=== PATIENT | female | born 1975 | race Caucasian/White ===

== ENCOUNTER → 2021-10-19 10:30 | Outpatient (BNVA) | payer OTHER, SELFPAY | PROVIDERS: PCP Internal Medicine; Visit Provider Psychiatry & Neurology Neurology | DX: G43.109 Migraine with aura, not intractable, without status migrainosus (principal); G36.0 Neuromyelitis optica [Devic] | CPT/HCPCS: 64615; 99212; J0585 ==

== ENCOUNTER → 2021-12-12 10:03 | Outpatient (BNVA) | payer OTHER, MEDICARE, SELFPAY | PROVIDERS: PCP Internal Medicine; Visit Provider Nurse Practitioner Family | DX: G44.009 Cluster headache syndrome, unspecified, not intractable (principal) | CPT/HCPCS: 99212 ==

== ENCOUNTER → 2022-03-16 09:16 | Outpatient (BNVA) | payer OTHER, SELFPAY | PROVIDERS: PCP Internal Medicine; Visit Provider Psychiatry & Neurology Neurology | DX: G43.109 Migraine with aura, not intractable, without status migrainosus (principal); G43.119 Migraine with aura, intractable, without status migrainosus; G36.0 Neuromyelitis optica [Devic] | CPT/HCPCS: 64615; 99211; J0585 ==

== ENCOUNTER → 2022-06-22 09:32 | Outpatient (BNVA) | payer OTHER, SELFPAY | PROVIDERS: PCP Internal Medicine; Visit Provider Psychiatry & Neurology Neurology | DX: G43.119 Migraine with aura, intractable, without status migrainosus (principal); G36.0 Neuromyelitis optica [Devic] | CPT/HCPCS: 64615; 99212; J0585 ==

== ENCOUNTER → 2022-08-06 10:57 | Outpatient (BNVA) | payer OTHER, SELFPAY | PROVIDERS: PCP Internal Medicine; Visit Provider Psychiatry & Neurology Neurology | DX: M25.511 Pain in right shoulder (principal); G36.0 Neuromyelitis optica [Devic]; M25.551 Pain in right hip | CPT/HCPCS: 99212 ==

== ENCOUNTER → 2022-08-20 14:46 | Outpatient (BNVA) | payer OTHER, SELFPAY | PROVIDERS: PCP Internal Medicine; Visit Provider Psychiatry & Neurology Neurology | DX: M25.511 Pain in right shoulder (principal); M25.551 Pain in right hip; G36.0 Neuromyelitis optica [Devic]; Z79.52 Long term (current) use of systemic steroids; Z79.899 Other long term (current) drug therapy | CPT/HCPCS: Q3014 ==

== ENCOUNTER 2022-09-04 10:00 | Outpatient (RCR) | payer OTHER, SELFPAY ==
--- NOTE | 2022-08-14 15:02 | MHC.PT.EP ---
[facility] [place] Office [place] Office [place] Office [address] Morgan Godinez [address] [phone] F: [phone] F: [phone] F: [phone] F: [phone] Physical Therapy Plan of Care Date of Evaluation: Date of Surgery: none Diagnosis: Pain in R shoulder. Assessment: Patient is a 46 year old R handed female who presents with s/s consistent with R shoulder pain. 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 Patient past medical history includes history of neuromyelitis optica. Current impairments include pain, posture, ROM, strength, activity tolerance and functional mobility. Functional limitations include decreased ability to lift, exercise, push, pull, carry, turn head, and sleep. Patient is motivated with good rehab potential. Skilled PT will address impairments and functional limitations in order to achieve goals. Frequency and Duration: The patient will be seen 2x/week for 5 weeks Short Term Goals: I with HEp - 2 weeks centralized s/s - 3 weeks Pain free full AAROM of shoulder - 3 weeks Correction Goals: Pain free sleep - 5 weeks SPADI 30 or less - 5 weeks max pain 2/10 with all ADLs. - 5 weeks I with self management of s/s - 5 weeks Treatment Plan: Modalities to reduce pain, spasms and effusion. Manual therapy to restore motion and function. Therapeutic exercise to improve strength and flexibility. Neuromuscular re-education for posture and balance. Therapeutic activities to return to functional activities of daily living. Electronically signed by: Adithya Hicks PT Please sign and return to therapist. Thank you for your referral.
--- NOTE | 2022-10-03 09:17 | MHC.PT.DC ---
[facility] [place] Office [place] Office [place] Office [address] Morgan Godinez [address] [phone] F: [phone] F: [phone] F: [phone] F: [phone] Physical Therapy Discharge Report Diagnosis: Pain in R shoulder. Date of Surgery: none Date of Evaluation: 08/14/22 Date of Discharge: 09/13/22 Treatments to Date: 5 Cancellations to Date: No Shows to Date: Discharge Status: Independent with HEP Recommend MD Follow-up Discharge Summary: 09/04/22: no sustained progress thus far and s/s are not improved. we will hold until MRI on the at this time. 08/28/22: we have been unable to make sustained progress thus far. we did try stretching of c-spine today and will assess response. If no progress by next appt we will likely refer back to MD with rec for further imaging and differential diagnosis. 08/24/22: pt still with significant pain and limitation. notes today cluster SENA present. we will monitor and progress as tolerated with aim on posture and symptom management. 08/15/22: improved tolerance today. seated position is better at this time. R TP to LS. start postural ex NV. Patient is a 46 year old R handed female who presents with s/s consistent with R shoulder pain. 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 Patient past medical history includes history of neuromyelitis optica. Current impairments include pain, posture, ROM, strength, activity tolerance and functional mobility. Functional limitations include decreased ability to lift, exercise, push, pull, carry, turn head, and sleep. Patient is motivated with good rehab potential. Skilled PT will address impairments and functional limitations in order to achieve goals. Electronically signed by: Adithya Hicks, PT Please sign and return to therapist. Thank you for your referral.
== END 2022-10-03 09:21 | disposition home or self-care (01) ==
LOC: HO.PTCHIC 10:00
PROVIDERS: PCP Internal Medicine; Visit Provider Psychiatry & Neurology Neurology
DX: M25.511 Pain in right shoulder (principal)
CPT/HCPCS: 97014; 97110; 97140; 97162

== ENCOUNTER 2022-09-12 09:46 | Outpatient (REF) | payer OTHER, SELFPAY ==
--- NOTE | ~2022-09-12 | MR_ITS ---
EXAMINATION: MR CERVICAL SPINE WITHOUT AND WITH CONTRAST CLINICAL INFORMATION: Neuromyelitis optica COMPARISON: None TECHNIQUE: MRI of the cervical spine was obtained using routine sequences without and with contrast. A total of 7 mL Gadavist was administered intravenously. FINDINGS: Mildly motion degraded examination. The craniocervical junction is intact. Straightening of the normal cervical lordosis. There is no significant spondylolisthesis. Vertebral body heights are normal without acute compression fracture. No suspicious enhancing osseous lesion. Multilevel disc desiccation with mild disc height loss at C6-C7. Level by level detail as follows: C2-C3: No spinal canal or neural foraminal stenosis. C3-C4: No spinal canal or neural foraminal stenosis. C4-C5: No spinal canal or neural foraminal stenosis. C5-C6: Mild bilateral facet hypertrophy. No spinal canal or neural foraminal stenosis. C6-C7: Annular disc bulge with superimposed right paracentral/subarticular disc protrusion/extrusion contributing to mild right eccentric spinal canal stenosis with flattening along the right ventral cord. Adjacent enhancement within the right ventral epidural spinal canal likely engorged epidural venous plexus. Mild uncovertebral spurring. Mild bilateral facet hypertrophy. Mild right without significant left neural foraminal stenosis. C7-T1: No spinal canal or neural foraminal stenosis. Though motion artifact limits assessment, there is short segment intramedullary T2 hyperintensity at the ventral cervicomedullary junction as well as within the ventral cord at the level of C2-C3, likely related to reported history of Neuromyelitis Optica. No abnormal intramedullary or leptomeningeal enhancement within limitations of motion artifact. No epidural fluid collection, mass, or hematoma. No significant abnormalities of the paraspinal musculature. The flow voids of the major cervical vessels are maintained, noting partially retropharyngeal course of the left proximal common carotid artery. The visualized intracranial structures are normal. No demonstrated abnormalities in the visualized neck. MR/MR cervical spine wo/w con IMPRESSION: Motion degraded examination. 1. Short segment intramedullary T2 hyperintensity at the ventral cervicomedullary junction as well as within the ventral cord at the level of C2-C3, likely related to reported history of Neuromyelitis Optica. 2. At C6-C7, a right paracentral/subarticular disc protrusion/extrusion results in mild right eccentric spinal canal stenosis mass effect along the right ventral cord and and mild right neural foraminal stenosis.
== END 2022-09-12 09:47 | disposition home or self-care (01) ==
LOC: HO.MRI 09:46
PROVIDERS: PCP Internal Medicine; Visit Provider Psychiatry & Neurology Neurology
DX: M25.511 Pain in right shoulder (principal); M54.2 Cervicalgia; G36.0 Neuromyelitis optica [Devic]
CPT/HCPCS: 72156; A9585

== ENCOUNTER → 2022-10-01 07:42 | Outpatient (BNVA) | payer OTHER, SELFPAY | PROVIDERS: Visit Provider Psychiatry & Neurology Neurology | DX: G36.0 Neuromyelitis optica [Devic] (principal); M50.223 Other cervical disc displacement at C6-C7 level | CPT/HCPCS: 99212 ==

== ENCOUNTER → 2022-11-01 14:57 | Outpatient (BNVA) | payer OTHER, SELFPAY | PROVIDERS: PCP Internal Medicine; Visit Provider Psychiatry & Neurology Neurology | DX: G36.0 Neuromyelitis optica [Devic] (principal); M50.223 Other cervical disc displacement at C6-C7 level ==

== ENCOUNTER → 2022-11-16 12:34 | Outpatient (BNVA) | payer OTHER, SELFPAY | PROVIDERS: PCP Internal Medicine; Visit Provider Psychiatry & Neurology Neurology | DX: G36.0 Neuromyelitis optica [Devic] (principal); G43.709 Chronic migraine without aura, not intractable, without status migrainosus; Z79.52 Long term (current) use of systemic steroids | CPT/HCPCS: 64615; 99212; J0585 ==

== ENCOUNTER 2023-03-04 09:44 | Outpatient (AMB) | payer OTHER, SELFPAY ==
[2023-03-04 09:45] VITALS: BP 124/82; PULSE 78; O2SAT 98
--- NOTE | 2023-03-04 09:45 | A.OFFVIS_ITS ---
Intake Vital Signs 03/04/23 09:45 Height 5 ft 3 in BP 124/82 Blood Pressure Location Rt brachial Position Sitting Pulse 78 Pulse Source Pulse Oximeter Pulse Oximetry (%) 98 Oxygen Delivery Method Simple Mask Intake Visit Reasons: botox-lvm Intake Note: Patient presents for botox injection Allergies promethazine [From Phenergan] Allergy (Verified 03/04/23 09:47) unknown Medication List - Last Reconciled 03/04/23 by Sunshine Blackwell MD baclofen 20 mg (2 x 10 mg) PO TID bupropion HCl (Wellbutrin XL) 300 mg PO QAM clonazepam 0.5 mg PO BEDTIME eculizumab (Soliris) 1,200 mg (120 mL) IV Q2W gabapentin 900 mg (1.5 x 600 mg) PO TID lidocaine 5% 1 patch topical DAILY 30 days meningococcal B vaccine,4-comp 50-50-50-25 mcg/0.5 mL (Bexsero) 0.5ml IM 1st d ose , 2nd dose in 4 weeks 0.5ml IM intramuscularly; omeprazole 20 mg PO BID 90 days omeprazole magnesium (Prilosec OTC) 20 mg PO BID onabotulinumtoxinA (Botox) subcut every 3 months; prednisone 20 mg PO DAILY romiplostim (Nplate) subcut sumatriptan succinate (Imitrex) 6 mg subcut DAILY HPI HPI Comments History of Present Illness Details ? 47y/o female comes for treatment of migraines with botox. she has h/o neuromyelitis optica diagnosed in 2019 and has been on soliris since then . Her first myelitis attack was in 2012 and her second was in 2019.she has residual neck pain , parsthesias and mild weakness 1 month she reported new paresthesias in left ahnd MRI C spine showed C6-7 new shallow paracentral disc protrusion causing mild narrowing of central canal , moderate to severe right ormainals stenosis at C7 No change in intramedullary lesion ??? Most frequent reported adverse reactions following injection of botox for chronic migraine include neck pain (9%), headache(5%), eyelid ptosis(4%), migraine(4%), muscular weakness(4%), musculuskeletal stiffness(4%), bronchitis( 3%), injection site pain (3%), musculoskeletal pain(3%), myalgia(3%), facial paresis(2%), HTN(2%) and muscle spasms(2%) were discussed in detail. ??? Botulinum toxin typeA 200units Lot no [id number] expiration Aug 2025 was diluted with 4 cc of normal saline . ??? Muscles injected- ??? Frontalis 4 sites ??? Procerus 1 site ??? House Wrecker- 2 sites ??? Temporalis- 8 sites ??? Occipitalis- 6 sites ??? Cervical paraspinals- 4 sites ??? Trapezius- 6 sites- 10 units each ??? 5 units each in 31 site ??? Total use- 185units ??? 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 Physical Exam Vital Signs: Last Vital Signs Pulse 78 03/04/23 09:45 BP 124/82 03/04/23 09:45 Pulse Ox 98 03/04/23 09:45 Oxygen Delivery Method Simple Mask 03/04/23 09:45 Const General: cooperative, healthy appearing and comfortable Nutritional Appearance: average body habitus Orientation/consciousness: patient oriented x3 Neck Other: tightness and spasm of right scapula, right semispinalis, trapezius Neuro General: patient oriented x3 and moves all extremities Gait exam (Neuro): Normal gait present Motor exam (neuro): 5/5 motor strength present throughout Deep tendon reflexes (DTR's): Right triceps reflex intensity grade: 0, Left triceps reflex intensity grade: 0, Rt Biceps (C5, C6): 2+, Left biceps reflex intensity grade: 2+, Right brachioradialis reflex intensity grade: 2+, Left brachioradialis reflex intensity grade: 2+, Right patellar reflex intensity grade: 4+ and Left patellar reflex intensity grade: 4+ Office Procedures Botulinum toxin Injection 12591 - Migraine Procedure code (CPT) selection complete Office Meds onabotulinumtoxinA Performing Provider: Sunshine Blackwell MD Administered by: Sunshine Blackwell MD on 03/04/23 10:35 Dose Route Admin Location Lot Number Expiration Date NDC Top Lift Compressor 200 unit subcut 7423-3387-58 ALLERGAN/BOTOX Comments: see hpi Assessment & Plan Assessment & Plan (1) Neuromyelitis optica [devic]: Code(s): G36.0 - Neuromyelitis optica [Devic] (2) Chronic migraine without aura: Code(s): G43.709 - Chronic migraine without aura, not intractable, without status migrainosus Qualifiers: Status migrainosus presence: without status migrainosus Intractability: intractable Qualified Code(s): G43.719 - Chronic migraine without aura, intractable, without status migrainosus Plan Patient tolerated the procedure well She will call with any side effects. Continue soliris 1200mgq 2weeks infusion Reviewed MRi results Info on Meningococcal booster given- due for Meningocccal A in 2023 and over due for meningococcal B vaccine Orders: Orders AMB Botulinum toxin Injection Today G43.709 - Chronic migraine without aura, not intractable, without status migrainosus Coding Level of Care Code Est Pt Level 1 (99909) Diagnoses Neuromyelitis optica [devic] G36.0 Chronic migraine without aura G43.719 Status migrainosus presence: without status migrainosus Intractability: intractable CPT Codes Botox Injection - Botox 3: 57672 - Migraine ([id number])
== END 2023-03-04 10:06 | disposition home or self-care (01) ==
PROVIDERS: Visit Provider Psychiatry & Neurology Neurology
DX: G36.0 Neuromyelitis optica [Devic] (principal); G43.719 Chronic migraine without aura, intractable, without status migrainosus
CPT/HCPCS: 64615

== ENCOUNTER → 2023-03-04 09:44 | Outpatient (BNVA) | payer OTHER, SELFPAY | PROVIDERS: Visit Provider Psychiatry & Neurology Neurology | DX: G43.709 Chronic migraine without aura, not intractable, without status migrainosus (principal); G36.0 Neuromyelitis optica [Devic]; Z79.52 Long term (current) use of systemic steroids; Z79.899 Other long term (current) drug therapy | CPT/HCPCS: 64615; 99211; J0585 ==

== ENCOUNTER 2023-06-06 08:37 | Outpatient (AMB) | payer OTHER, SELFPAY ==
--- NOTE | 2023-06-06 08:47 | A.OFFVIS_ITS ---
Intake Vital Signs 06/06/23 08:49 Height 5 ft 3 in Weight 159 lb 8 oz BMI 28.3 BP 98/68 Blood Pressure Location Rt brachial Position Sitting Respiration 15 Pulse 78 Pulse Source Pulse Oximeter Pulse Oximetry (%) 98 Oxygen Delivery Method Room Air Intake Visit Reasons: botox - confirmed Intake Note: Pt presents to the office for Botox injections. 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 Repairer Required: No Allergies promethazine [From Phenergan] Allergy (Verified 06/06/23 08:48) unknown Medication List - Last Reconciled 06/06/23 by Sunshine Blackwell MD baclofen 20 mg (2 x 10 mg) PO TID bupropion HCl (Wellbutrin XL) 300 mg PO QAM clonazepam 0.5 mg PO BEDTIME eculizumab (Soliris) 1,200 mg (120 mL) IV Q2W gabapentin 900 mg (1.5 x 600 mg) PO TID lidocaine 5% 1 patch topical DAILY 30 days meningococcal B vaccine,4-comp 50-50-50-25 mcg/0.5 mL (Bexsero) 0.5ml IM 1st dose , 2nd dose in 4 weeks 0.5ml IM intramuscularly; omeprazole 20 mg PO BID 90 days omeprazole magnesium (Prilosec OTC) 20 mg PO BID onabotulinumtoxinA (Botox) subcut every 3 months; prednisone 20 mg PO DAILY romiplostim (Nplate) subcut sumatriptan succinate (Imitrex) 6 mg subcut DAILY HPI HPI Comments History of Present Illness Details ? 47y/o female comes for treatment of migraines with botox. she has h/o neuromyelitis optica diagnosed in 2019 and has been on soliris since then . Her first myelitis attack was in 2012 and her second was in 2019.she has residual neck pain , paresthesias and mild weakness ??? Most frequent reported adverse reactions following injection of botox for chronic migraine include neck pain (9%), headache(5%), eyelid ptosis(4%), migraine(4%), muscular weakness(4%), musculuskeletal stiffness(4%), bronchitis(3%), injection site pain (3%), musculoskeletal pain(3%), myalgia(3%), facial paresis(2%), HTN(2%) and muscle spasms(2%) were discussed in detail. ??? Botulinum toxin typeA 200units Lot no [id number] expiration Aug 2025 was diluted with 4 cc of normal saline . ??? Muscles injected- ??? Frontalis 4 sites ??? Procerus 1 site ??? Crutch Maker- 2 sites ??? Temporalis- 8 sites ??? Occipitalis- 6 sites ??? Cervical paraspinals- 4 sites ??? Trapezius- 6 sites- 10 units each ??? 5 units each in 31 site ??? Total use- 185units ??? 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 Physical Exam Vital Signs: Last Vital Signs Pulse 78 06/06/23 08:49 Resp 15 06/06/23 08:49 BP 98/68 06/06/23 08:49 Pulse Ox 98 06/06/23 08:49 Oxygen Delivery Method Room Air 06/06/23 08:49 BMI result Body Mass Index 28.3 Const General: cooperative, healthy appearing and comfortable Nutritional Appearance: average body habitus Orientation/consciousness: patient oriented x3 Neck Other: tightness and spasm of right scapula, right semispinalis, trapezius Neuro General: patient oriented x3 and moves all extremities Gait exam (Neuro): Normal gait present Motor exam (neuro): 5/5 motor strength present throughout Office Procedures Botulinum toxin Injection 64996 - Migraine Procedure code (CPT) selection complete Office Meds onabotulinumtoxinA 200 unit solution for injection Performing Provider: Sunshine Blackwell MD Performing Location: [facility] Administered by: Sunshine Blackwell MD on 06/06/23 09:19 Dose Route Admin Location Dispensed Lot Number Expiration Date NDC Secondary Art Teacher 185 unit subcut 200 units [id number] 08/22/25 7450-5336-36 ALLERGAN/BOTOX Comments: see HPI Assessment & Plan Assessment & Plan (1) Neuromyelitis optica [devic]: Code(s): G36.0 - Neuromyelitis optica [Devic] (2) Chronic migraine without aura: Code(s): G43.709 - Chronic migraine without aura, not intractable, without status migrainosus Qualifiers: Status migrainosus presence: without status migrainosus Intractability: intractable Qualified Code(s): G43.719 - Chronic migraine without aura, intractable, without status migrainosus Plan Patient tolerated the procedure well She will call with any side effects. Continue soliris 1200mgq 2weeks infusion Reviewed MRi results Due for meningococcal A vaccine in 2023 Orders: Orders AMB Botulinum toxin Injection Today G43.709 - Chronic migraine without aura, not intractable, without status migrainosus Coding Level of Care Code Est Pt Level 1 (44538) Diagnoses Neuromyelitis optica [devic] G36.0 Intractable chronic migraine without aura and without status migrainosus G43.719 Status migrainosus presence: without status migrainosus Intractability: intractable CPT Codes Botox Injection - Botox 3: 46012 - Migraine ([id number])
[2023-06-06 08:49] VITALS: BP 98/68; PULSE 78; RESP 15; O2SAT 98; BMI 28.3
== END 2023-06-06 09:10 | disposition home or self-care (01) ==
PROVIDERS: PCP Internal Medicine; Visit Provider Psychiatry & Neurology Neurology
DX: G43.709 Chronic migraine without aura, not intractable, without status migrainosus (principal)
CPT/HCPCS: 64615

== ENCOUNTER → 2023-06-06 08:37 | Outpatient (BNVA) | payer OTHER, SELFPAY | PROVIDERS: PCP Internal Medicine; Visit Provider Psychiatry & Neurology Neurology | DX: G36.0 Neuromyelitis optica [Devic] (principal); G43.719 Chronic migraine without aura, intractable, without status migrainosus | CPT/HCPCS: 64615; 99211; J0585 ==

== ENCOUNTER 2023-09-20 15:39 | Outpatient (AMB) | payer OTHER, SELFPAY ==
--- NOTE | 2023-09-20 15:44 | A.OFFVIS_ITS ---
Intake Vital Signs 09/20/23 15:45 Height 5 ft 3 in Weight 160 lb BMI 28.3 BP 126/70 Blood Pressure Location Rt brachial Position Sitting Respiration 16 Pulse 80 Pulse Source Pulse Oximeter Pulse Oximetry (%) 99 Oxygen Delivery Method Room Air Intake Visit Reasons: botox-CONF Intake Note: Pt presents to office for Botox injections. Cementer Machine Required: No Allergies promethazine [From Phenergan] Allergy (Verified 09/20/23 15:44) unknown Medication List - Last Reconciled 09/20/23 by Sunshine Blackwell MD baclofen 20 mg (2 x 10 mg) PO TID bupropion HCl (Wellbutrin XL) 300 mg PO QAM eculizumab (Soliris) 1,200 mg (120 mL) IV Q2W gabapentin 900 mg (1.5 x 600 mg) PO TID meningococcal B vaccine,4-comp 50-50-50-25 mcg/0.5 mL (Bexsero) 0.5ml IM 1st dose , 2nd dose in 4 weeks 0.5ml IM intramuscularly; onabotulinumtoxinA (Botox) subcut every 3 months; romiplostim (Nplate) subcut sumatriptan succinate (Imitrex) 6 mg subcut DAILY HPI HPI Comments History of Present Illness Details ? 47y/o female comes for treatment of migraines with botox. she has h/o neuromyelitis optica diagnosed in 2019 and has been on soliris since then . Her first myelitis attack was in 2012 and her second was in 2019.she has residual neck pain , paresthesias and mild weakness ??? Most frequent reported adverse reactions following injection of botox for chronic migraine include neck pain (9%), headache(5%), eyelid ptosis(4%), migraine(4%), muscular weakness(4%), musculuskeletal stiffness(4%), bronchitis(3%), injection site pain (3%), musculoskeletal pain(3%), myalgia(3%), facial paresis(2%), HTN(2%) and muscle spasms(2%) were discussed in detail. ??? Botulinum toxin typeA 200units Lot no [id number] expiration December 2025 was diluted with 4 cc of normal saline . ??? Muscles injected- ??? Frontalis 4 sites ??? Procerus 1 site ??? Scrap Drop Crane Operator- 2 sites ??? Temporalis- 8 sites ??? Occipitalis- 6 sites ??? Cervical paraspinals- 4 sites ??? Trapezius- 6 sites- 10 units each ??? 5 units each in 31 site ??? Total use- 185units ??? 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 Physical Exam Vital Signs: Last Vital Signs Pulse 80 09/20/23 15:45 Resp 16 09/20/23 15:45 BP 126/70 09/20/23 15:45 Pulse Ox 99 09/20/23 15:45 Oxygen Delivery Method Room Air 09/20/23 15:45 BMI result Body Mass Index 28.3 Const General: cooperative, healthy appearing and comfortable Nutritional Appearance: average body habitus Orientation/consciousness: patient oriented x3 Neck Other: tightness and spasm of right scapula, right semispinalis, trapezius Neuro General: patient oriented x3 and moves all extremities Gait exam (Neuro): Normal gait present Motor exam (neuro): 5/5 motor strength present throughout Office Procedures Botulinum toxin Injection 06177 - Migraine Procedure code (CPT) selection complete Office Meds onabotulinumtoxinA 200 unit solution for injection Performing Provider: Sunshine Blackwell MD Performing Location: [facility] [place] [facility] Administered by: Sunshine Blackwell MD on 09/20/23 16:04 Dose Route Admin Location Dispensed Lot Number Expiration Date [facility] Utility Aide 185 unit subcut 200 units [id number] 12/20/25 8078-0396-72 ALLERGAN/BOTOX Comments: see hpi Assessment & Plan Assessment & Plan (1) Neuromyelitis optica [devic]: Code(s): G36.0 - Neuromyelitis optica [Devic] (2) Chronic migraine without aura: Code(s): G43.709 - Chronic migraine without aura, not intractable, without status migrainosus Qualifiers: Status migrainosus presence: without status migrainosus Intractability: intractable Qualified Code(s): G43.719 - Chronic migraine without aura, intractable, without status migrainosus Plan Patient tolerated the procedure well She will call with any side effects. Continue soliris 1200mgq 2weeks infusion Reviewed MRi results Due for meningococcal A vaccine in 2023 Orders: Orders AMB Botulinum toxin Injection Today G43.709 - Chronic migraine without aura, not intractable, without status migrainosus Coding Level of Care Code Tele Est Pt Level 1 (14469) Diagnoses Neuromyelitis optica [devic] G36.0 Intractable chronic migraine without aura and without status migrainosus G43.719 Status migrainosus presence: without status migrainosus Intractability: intractable CPT Codes Botox Injection - Botox 3: 03366 - Migraine ([id number])
[2023-09-20 15:45] VITALS: BP 126/70; PULSE 80; RESP 16; O2SAT 99; BMI 28.3
== END 2023-09-20 16:07 | disposition home or self-care (01) ==
PROVIDERS: PCP Internal Medicine; Visit Provider Psychiatry & Neurology Neurology
DX: G43.719 Chronic migraine without aura, intractable, without status migrainosus (principal)
CPT/HCPCS: 64615; 99211

== ENCOUNTER → 2023-09-20 15:39 | Outpatient (BNVA) | payer OTHER, SELFPAY | PROVIDERS: PCP Internal Medicine; Visit Provider Psychiatry & Neurology Neurology | DX: G36.0 Neuromyelitis optica [Devic] (principal); G43.719 Chronic migraine without aura, intractable, without status migrainosus | CPT/HCPCS: 64615; J0585 ==

== ENCOUNTER 2023-12-26 08:21 | Outpatient (AMB) | payer OTHER, SELFPAY ==
--- NOTE | 2023-12-26 08:21 | A.OFFVIS_ITS ---
Intake Visit Reasons: Follow Up Intake Note: Pt presents for 3 month follow up for chronic migraines via telehealth. She reports she has been awful with nearly daily migraines. Pillowcase Turner Required: No Allergies promethazine [From Phenergan] Allergy (Verified 12/26/23 08:21) unknown HPI Comments Details: 47y/o female calls for f/u of his migraines and cluster headaches.she has been having daily cluster like headaches for past 1 month . I treated her with a prednisone taper which she responded but has recurrence when she stopped.she has been taking daily sumatriptan During her soliris infusion 2 weeks ago she was given toradol IV 15 mg which helped for few hrs.. she has h/o neuromyelitis optica diagnosed in 2019 and has been on soliris since then . 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 Physical Exam Const General: in distress and anxious Orientation/consciousness: patient oriented x3 Neuro General: patient oriented x3 Telehealth Telehealth Telehealth Platform: Telephone Location of provider rendering services: practice address Location of patient: address on file Patient Identification confirmed using: Name, : Yes Telehealth method: voice only Patient verbally consented to treatment: Yes Patient verbally consented to billing insurance company: Yes Patient informed of any privacy concerns related to visit: Yes Minutes spent on Phone/Video with Pt.: 18 Assessment & Plan Assessment & Plan (1) Neuromyelitis optica [devic]: Code(s): G36.0 - Neuromyelitis optica [Devic] Category: Medical (2) Chronic migraine without aura: Code(s): G43.709 - Chronic migraine without aura, not intractable, without status migrainosus Category: Medical Qualifiers: Status migrainosus presence: without status migrainosus Intractability: intractable Qualified Code(s): G43.719 - Chronic migraine without aura, intractable, without status migrainosus Plan I will start her on another course of prednisone taper she is due for her BOTOX . Toradol 15mg during soliris infusion Continue soliris 1200mgq 2weeks infusion Reviewed MRi results Due for meningococcal A vaccine in 2023 Medications: Refilled prednisone 6 tabs qd 3 days 5 tabs qd 3days 4 tabs qd 3 days 3 tabs qd 3 days 2 tabs qd 3 days 1 tab qd for 3 days orally as directed; see taper instructions 65 tabs 0RF Coding Level of Care Code Tele Est Pt Level 4 (93725) Diagnoses Neuromyelitis optica [devic] G36.0 Intractable chronic migraine without aura and without status migrainosus G43.719 Status migrainosus presence: without status migrainosus Intractability: intractable
== END 2023-12-26 10:08 | disposition home or self-care (01) ==
LOC: HO.HSMS 08:21
PROVIDERS: PCP Internal Medicine; Visit Provider Psychiatry & Neurology Neurology
DX: G36.0 Neuromyelitis optica [Devic] (principal); G43.719 Chronic migraine without aura, intractable, without status migrainosus
CPT/HCPCS: 99442

== ENCOUNTER → 2023-12-26 08:21 | Outpatient (BNVA) | payer OTHER, SELFPAY | PROVIDERS: PCP Internal Medicine; Visit Provider Psychiatry & Neurology Neurology ==

== ENCOUNTER 2023-12-30 13:44 | Outpatient (AMB) | payer OTHER, SELFPAY ==
--- NOTE | 2023-12-30 13:50 | MHC.OFFVIS ---
Vital Signs 12/30/23 13:51 Height 5 ft 3 in Weight 160 lb BMI 28.3 BP 110/72 Blood Pressure Location Rt brachial Position Sitting Respiration 16 Pulse 68 Pulse Source Pulse Oximeter Pulse Oximetry (%) 99 Intake Visit Reasons: Botox - Confirmed Intake Note: Pt presents for Botox injections. Bond Manager Required: No Allergies promethazine [From Phenergan] Allergy (Verified 12/30/23 13:51) unknown Medication List - Last Reconciled 12/30/23 by Sunshine Blackwell MD baclofen 20 mg (2 x 10 mg) PO TID bupropion HCl XL (Wellbutrin XL) 300 mg PO QAM eculizumab (Soliris) 1,200 mg (120 mL) IV Q2W gabapentin 600 mg PO TID 30 days meningococcal B vaccine,4-comp 50-50-50-25 mcg/0.5 mL (Bexsero) 0.5ml IM 1st dose , 2nd dose in 4 weeks 0.5ml IM intramuscularly; onabotulinumtoxinA (Botox) subcut every 3 months; prednisone 6 tabs qd 3 days 5 tabs qd 3days 4 tabs qd 3 days 3 tabs qd 3 days 2 tabs qd 3 days 1 tab qd for 3 days orally as directed; see taper instructions romiplostim (Nplate) subcut sumatriptan succinate (Imitrex) 6 mg subcut DAILY verapamil ER 120 mg PO DAILY HPI Comments Details: ? 48y/o female comes for treatment of migraines with botox. she has h/o neuromyelitis optica diagnosed in 2019 and has been on soliris since then . Her first myelitis attack was in 2012 and her second was in 2019.she has residual neck pain , paresthesias and mild weakness ??? Most frequent reported adverse reactions following injection of botox for chronic migraine include neck pain (9%), headache(5%), eyelid ptosis(4%), migraine(4%), muscular weakness(4%), musculuskeletal stiffness(4%), bronchitis(3%), injection site pain (3%), musculoskeletal pain(3%), myalgia(3%), facial paresis(2%), HTN(2%) and muscle spasms(2%) were discussed in detail. ??? Botulinum toxin typeA 200units Lot no [id number] expiration December 2025 was diluted with 4 cc of normal saline . ??? Muscles injected- ??? Frontalis 4 sites ??? Procerus 1 site ??? Carpenter Assistant- 2 sites ??? Temporalis- 8 sites ??? Occipitalis- 6 sites ??? Cervical paraspinals- 4 sites ??? Trapezius- 6 sites- 10 units each ??? 5 units each in 31 site ??? Total use- 185units ??? 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 Physical Exam Vital Signs: Last Vital Signs Pulse 68 12/30/23 13:51 Resp 16 12/30/23 13:51 BP 110/72 12/30/23 13:51 Pulse Ox 99 12/30/23 13:51 BMI result Body Mass Index 28.3 Const General: cooperative, healthy appearing and comfortable Nutritional Appearance: average body habitus Orientation/consciousness: patient oriented x3 Neck Other: tightness and spasm of right scapula, right semispinalis, trapezius Neuro General: patient oriented x3 and moves all extremities Gait exam (Neuro): Normal gait present Motor exam (neuro): 5/5 motor strength present throughout Office Procedures Botulinum toxin Injection 13662 - Migraine Procedure code (CPT) selection complete Office Meds onabotulinumtoxinA 200 unit solution for injection Performing Provider: Sunshine Blackwell MD Performing Location: [facility] Administered by: Sunshine Blackwell MD on 12/30/23 14:16 Dose Route Admin Location Dispensed Lot Number Expiration Date NDC Red Lead Burner 200 unit subcut 200 units [id number] 12/20/25 8615-0583-66 ALLERGAN/BOTOX Comments: see HPI Assessment & Plan Assessment & Plan (1) Neuromyelitis optica [devic]: Code(s): G36.0 - Neuromyelitis optica [Devic] Category: Medical (2) Chronic migraine without aura: Code(s): G43.709 - Chronic migraine without aura, not intractable, without status migrainosus Category: Medical Qualifiers: Status migrainosus presence: without status migrainosus Intractability: intractable Qualified Code(s): G43.719 - Chronic migraine without aura, intractable, without status migrainosus Plan Patient tolerated the procedure well She will call with any side effects. Continue soliris 1200mgq 2weeks infusion Reviewed MRi results Due for meningococcal A vaccine in 2023 Orders: Orders AMB Botulinum toxin Injection Today G43.719 - Chronic migraine without aura, intractable, without status migrainosus Medications: New verapamil ER 120 mg PO DAILY 30 tabs 6RF onabotulinumtoxinA 200 units subcut ONCE 1 ea 0RF G43.719 - Chronic migraine without aura, intractable, without status migrainosus Coding Level of Care Code Est Pt Level 1 (97707) Diagnoses Neuromyelitis optica [devic] G36.0 Intractable chronic migraine without aura and without status migrainosus G43.719 Status migrainosus presence: without status migrainosus Intractability: intractable CPT Codes Botox Injection - Botox 3: 35201 - Migraine ([id number])
[2023-12-30 13:51] VITALS: BP 110/72; PULSE 68; RESP 16; O2SAT 99; BMI 28.3
== END 2023-12-30 14:12 | disposition home or self-care (01) ==
PROVIDERS: PCP Internal Medicine; Visit Provider Psychiatry & Neurology Neurology
DX: G43.719 Chronic migraine without aura, intractable, without status migrainosus (principal)
CPT/HCPCS: 64615

== ENCOUNTER → 2023-12-30 13:44 | Outpatient (BNVA) | payer OTHER, SELFPAY | PROVIDERS: PCP Internal Medicine; Visit Provider Psychiatry & Neurology Neurology | DX: G43.719 Chronic migraine without aura, intractable, without status migrainosus (principal); G36.0 Neuromyelitis optica [Devic] | CPT/HCPCS: 64615; 99211; J0585 ==

== ENCOUNTER 2024-04-15 11:29 | Outpatient (AMB) | payer OTHER, SELFPAY ==
--- NOTE | 2024-04-15 11:31 | MHC.OFFVIS ---
Vital Signs 04/15/24 11:32 Height 5 ft 3 in Weight 160 lb BMI 28.3 BP 106/68 Blood Pressure Location Rt brachial Position Sitting Respiration 16 Pulse 84 Pulse Source Palpation Intake Visit Reasons: Botox Intake Note: Pt presents to the office for Botox injections for Chronic migraines. Outpatient Surgery Rn Required: No Allergies promethazine [From Phenergan] Allergy (Verified 04/15/24 11:31) unknown Medication List - Last Reconciled 04/15/24 by Sunshine Blackwell MD baclofen 20 mg (2 x 10 mg) PO TID bupropion HCl XL (Wellbutrin XL) 300 mg PO QAM eculizumab (Soliris) 1,200 mg (120 mL) IV Q2W gabapentin 600 mg PO TID 30 days mening A conj vacc,2 of 2 (PF) 0.5 mL IM ONCE meningococcal B vaccine,4-comp 50-50-50-25 mcg/0.5 mL (Bexsero) 0.5ml IM 1st dose , 2nd dose in 4 weeks 0.5ml IM intramuscularly; onabotulinumtoxinA (Botox) subcut every 3 months; Oxygen Home Use High flow O2 at 12-15 lpm via non-rebreather mask, via M-tank when at home and E-tank when outside of home. Prn at onset of cluster headache attack. prednisone 6 tabs qd 3 days 5 tabs qd 3days 4 tabs qd 3 days 3 tabs qd 3 days 2 tabs qd 3 days 1 tab qd for 3 days orally as directed; see taper instructions romiplostim (Nplate) subcut sumatriptan succinate (Imitrex) 6 mg subcut DAILY verapamil ER 120 mg PO DAILY HPI Comments Details: ? 48y/o female comes for treatment of migraines with botox. she has h/o neuromyelitis optica diagnosed in 2019 and has been on soliris since then . Her first myelitis attack was in 2012 and her second was in 2019.she has residual neck pain , paresthesias and mild weakness How long do the migraines last=2-3 Intensity of migraine-10 ER visits related to [id number] Effectiveness of botox from last treatment(s) How many migraine days since receiving treatment:10 Change in intensity of migraine?decreased Change in frequency of migraine?decreased Change in use of acute medication for migraine?decreased Change in quality of life?improved ER visits related to migraine?none Explanation for any gaps in treatment Have at least three months elapsed since last treatment (Last botox date - frequency of injections)01/12 ??? Most frequent reported adverse reactions following injection of botox for chronic migraine include neck pain (9%), headache(5%), eyelid ptosis(4%), migraine(4%), muscular weakness(4%), musculuskeletal stiffness(4%), bronchitis(3%), injection site pain (3%), musculoskeletal pain(3%), myalgia(3%), facial paresis(2%), HTN(2%) and muscle spasms(2%) were discussed in detail. ??? Botulinum toxin typeA 200units Lot no [id number] expiration Jun 2026 was diluted with 4 cc of normal saline . ??? Muscles injected- ??? Frontalis 4 sites ??? Procerus 1 site ??? Producer Assistant- 2 sites ??? Temporalis- 8 sites ??? Occipitalis- 6 sites ??? Cervical paraspinals- 4 sites ??? Trapezius- 6 sites- 10 units each ??? 5 units each in 31 site ??? Total use- 185units ??? 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[employer] Physical Exam Vital Signs: Last Vital Signs Pulse 84 04/15/24 11:32 Resp 16 04/15/24 11:32 BP 106/68 04/15/24 11:32 BMI result Body Mass Index 28.3 Const General: cooperative, healthy appearing and comfortable Nutritional Appearance: average body habitus Orientation/consciousness: patient oriented x3 Neck Other: tightness and spasm of right scapula, right semispinalis, trapezius Neuro General: patient oriented x3 and moves all extremities Gait exam (Neuro): Normal gait present Motor exam (neuro): 5/5 motor strength present throughout Office Procedures Botulinum toxin Injection 20628 - Migraine Procedure code (CPT) selection complete Office Meds onabotulinumtoxinA 200 unit solution for injection Performing Provider: Sunshine Blackwell MD Performing Location[place] [facility] Administered by: Sunshine Blackwell MD on 04/15/24 12:03 Dose Route Admin Location Dispensed Lot Number Expiration Date [facility] Microfilm Mounter 185 unit IM 200 units [id number] 06/21/26 6506-9743-56 ALLERGAN/BOTOX Assessment & Plan Assessment & Plan (1) Neuromyelitis optica [devic]: Code(s): G36.0 - Neuromyelitis optica [Devic] Category: Medical (2) Chronic migraine without aura: Code(s): G43.709 - Chronic migraine without aura, not intractable, without status migrainosus Category: Medical Qualifiers: Status migrainosus presence: without status migrainosus Intractability: intractable Qualified Code(s): G43.719 - Chronic migraine without aura, intractable, without status migrainosus Plan Patient tolerated the procedure well She will call with any side effects. Continue soliris 1200mgq 2weeks infusion Reviewed MRi results Due for meningococcal A vaccine in 2023 Orders: Orders AMB Botulinum toxin Injection Today G43.119 - Migraine with aura, intractable, without status migrainosus, G43.719 - Chronic migraine without aura, intractable, without status migrainosus Medications: New onabotulinumtoxinA 200 units IM ONCE 1 ea 0RF migraine G43.119 - Migraine with aura, intractable, without status migrainosus, G43.719 - Chronic migraine without aura, intractable, without status migrainosus Coding Level of Care Code Est Pt Level 1 (01044) Diagnoses Neuromyelitis optica [devic] G36.0 Intractable chronic migraine without aura and without status migrainosus G43.719 Status migrainosus presence: without status migrainosus Intractability: intractable CPT Codes Botox Injection - Botox 3: 90582 - Migraine ([id number])
[2024-04-15 11:32] VITALS: BP 106/68; PULSE 84; RESP 16; BMI 28.3
== END 2024-04-15 11:50 | disposition home or self-care (01) ==
PROVIDERS: PCP Internal Medicine; Visit Provider Psychiatry & Neurology Neurology
DX: G43.719 Chronic migraine without aura, intractable, without status migrainosus (principal)
CPT/HCPCS: 64615

== ENCOUNTER → 2024-04-15 11:29 | Outpatient (BNVA) | payer OTHER, SELFPAY | PROVIDERS: PCP Internal Medicine; Visit Provider Psychiatry & Neurology Neurology | DX: G43.719 Chronic migraine without aura, intractable, without status migrainosus (principal); G36.0 Neuromyelitis optica [Devic] | CPT/HCPCS: 64615; 99211; J0585 ==

== ENCOUNTER 2024-07-20 15:05 | Outpatient (AMB) | payer OTHER, SELFPAY ==
--- OUTSIDE RECORDS SUMMARY | 2024-07-20 15:07 | XMS_ITS | Data Portability ---
Author Organization [employer], [facility] Address [address] [place] [id number] Care Team Providers Care Import/Export Agent Name Role Phone HIM [facility] OTHER Assessment Encounter Date Assessment Date Assessment LastModified by Organization Details LastModified Time 12/23/2023 12/23/2023 I provided real -time medical direction via phone for this encounter, and was available for additional phone based assistance as needed. I have reviewed and agree with the Assessment and Plan as documented by the Head Start Coordinator. The patient given the opportunity to ask questions. [email or web address] Not available 12/23/2023 15:47:21 Plan of Treatment Reminders Order Date Submit Date Provider Last Modified By Organization Details Last Modified Time Details Appointments None record ed. Lab None record ed. Referral None record ed. Procedures None record ed. Surgeries None record ed. Imaging None record ed. Medication Orders None record ed. Patient TargetsNo targets recorded. Patient InstructionsNo instructions recorded. Reason for Referral None Reported. Medical Equipment None Reported. Allergies Allergen ID Allergen Name Allergen Category Reaction Reaction Severity Criticality Documentation Date Start Date Code Code System Note Provider Name and Address Organization Details Recorded Time 5170 Phenergan medicatio n Not available Not available Not available 12/23/2023 67625 8 RxNorm Bela Michel MD [address] [place] [address],[address], [place], [address] [facility] [employer] 15:45:36 Medications Name Sig Start Date Stop Date Status Note LastModified by Organization Details LastModified Time prednisone 10 mg tablet PLEASE SEE ATTACHED FOR DETAILED DIRECTIONS active Not Available Not Available N ot Available gabapentin 600 mg tablet TAKE 1 TABLET BY MOUTH 3 TIMES A DAY active Not Available Not Available Not Available baclofen 10 mg tablet TAKE 2 TABLETS BY MOUTH THREE TIMES A DAY active Not Available Not Available Not Available omeprazole 20 mg capsule,terry yed release TAKE 1 CAPSULE BY MOUTH TWICE A DAY active Not Available Not Available No t Available sumatriptan 6 mg/0.5 mL subcutaneous pen injector INJECT 0.5 ML (1 PEN) SUBCUTANEOU SLY TWICE A DAY NEEDED active Not Available Not Available No t Available cyclobenzapr ine 5 mg tablet TAKE 1 TABLET BY MOUTH EVERY DAY FOR 10 DAYS active Not Available Not Available No t Available bupropion HCl XL 300 mg 24 hr tablet, extended release TAKE 1 TABLET BY MOUTH EVERY DAY active Not Available Not Available No t Available Vitals Date Recorded Heart rate Respiratory rate Oxygen saturation Oxygen saturation in Arterial blood by Pulse oximetry Body temperature Systolic blood pressure Diastolic blood pressure Provider Name and Address Organization Details Last Updated DateTime 4 85 /min 16 /min 100 % 100 % 97.8 [degF] 125 mm[Hg] 84 mm[Hg] Not Available [facility] - production 4 15:39:23 Social History None recorded. Functional Status None recorded. Mental Status None recorded. Family History Nothing Reported. Medical History No medical history recorded. Gynecological HistoryNo gynecological history recorded. Obstetrics History GPAL:G 0 P 0 0 0 0 Past Encounters Encounter ID Performer Location Encounter Start Date Encounter Closed Date Diagnosis/Indication Diagnosis SNOMED-CT Code Diagnosis ICD10 Code [id number] Bela Michel MD [facility] [address] [place] [id number] 12/23/2023 15:39:21 12/23/2023 16:36:29 Migraine [id number] G43.909 Health Concerns Section Related Observation LastModified by Organization Detai ls LastModified Time None Recorded Concern Status LastModified by Organization Details LastModified Time None Recorded Advance Directives Directive None Recorded Payers Encounter Date Sequence Insurance Name Policy Number Policy Burleson Covered Member ID Burleson Member ID Guarantor Name 12/23/2023 1 [facility] - DOS ON OR AFTER 2022 - DUAL ELIGIBLE - [employer] OPTIONS AND ONE CARE (MEDICARE REPLACEMENT/AD VANTAGE - HMO) Gary Patrick [id number] Gary Patrick Notes Date Note Type Note Provider Name and Address Organization Details Recorded Time 12/23/2023 text/html HPI: Member called [facility], c/o hx of cluster headaches. Member is currently being treated with sumatriptan inj. Member is being managed by Neurology. Per member, she is seeking refill of her sumatriptan, but the pharmacy states, it is too soon to refill. Member picked up 28 day supply on Saturday, 3 days ago, and has only one injection left. Per member report, she has been taking 5 injections/day. Prescription is for 2 injections per day as needed. Advised member, [facility] will not cover the early refill, if she is not taking medication as prescribed. She can follow up with her prescriber, regarding the frequency of taking the medication. Member states she has tried to contact her neurologist, but has not been successful. Member c/o severe headache. PMH includes but not limited to, SHAD, Neuromyelitis optica, intractable cluster headaches, MDD, transverse myelitis. Offered member [facility] visit. Informed member, [facility] does not prescribe medications. However, they can evaluate her, and if appropriate, the can give her Toradal injection. Advised her if sx's worsen or change, if she feels she is unable to wait for [facility], go to urgent care or ED. Member agreed with this plan ................... ................... ................... ................... ................... ................... ................... ........ [facility] Nurse Triage Notes (Nicki Fleming): Comments: [facility] RN DID NOT NEED FURTHER INFOSEGMD: As above/ + photophobia - no vomiting - no focal neuro c/o- took far too much sumatriptan in 3 days............... ................... ................... ................... ................... ................... ................... ............. Head Start Coordinator Note From Ashkan Adithya: Upon arrival to the pt? s home, pt was found seated in her living room speaking with her neurologist. Pt sts neurologist would prefer her to be transported to the ED for further evaluation. Pt reports hx of cluster SENA which usually respond well to her medications. Today the medications are not treating the SENA. Pt endorses photophobia but denies n/v/d. Pt is alert, visibly uncomfortable. VSS. Afebrile. Non focal neuro exam. Normal gait. Equal strength in all extremities. Pt requested ambulance transport. 911 initiated and SBAR to [facility] crew. ................... ................... ................... ................... ................... ................... ................... ........ Disposition: Fulfilled Bela Michel MD [address] [facility],[address], [place], [phone], [employer] 12/23/2023 16:17:58 OBGyn Episode No OBEpisode recorded.
--- OUTSIDE RECORDS SUMMARY | 2024-07-20 15:08 | XMS_ITS | Continuity of Care Document ---
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 Available Not Available Not Available Morphine Sulfate CR 15 mg tablet,ex tended release THREE TIMES DAILY active RECORDED 03/26/20 13 11:58AM BY EDWAR BORDEN MD, ANNOTATI ON/ADDEN DUM; Not Available Not Available Not Available tramadol 50 mg tablet TAKE 1 TABLET BY MOUTH TWICE A DAY NEEDED FOR PAIN MAX 7 DAYS SUPPLY FOR 1ST FILL* 11/30 completed Not Available Not Available Not Available zolmitrip cruz 5 mg tablet ONE TIME AT ONSET OF HEADACHE MAY REPEAT AFTER 2 H 01/21 completed RECORDED 01/24/20 13 12:36PM BY EDWAR BORDEN MD, MEDICATI ON AUTO-JOHAN CTIVATIO N; Not Available Not Available Not Available butalbita l-acetami nophen-ca ffeine 50 mg-325 mg-40 mg tablet Take 1 tablet as needed by oral route for 21 days. 11/13 completed Not Available Not Available Not Available lidocaine -prilocai ne 2.5 %-2.5 % topical cream USE UP TO 3 GM (1 PUMP =1.5GRAM S) TO PAIN SITE 3-4 TIMES DAILY. 06/30 completed Not Available Not Available Not Available lamotrigi ne 25 mg tablet Take 1 tablet every day by oral route for 42 days. 10/04 completed Not Available Not Available Not Available baclofen 20 mg tablet FOUR TIMES DAILY 10/04 completed Not Available Not Available Not Available oxycodone -acetamin ophen 5 mg-325 mg tablet TAKE 1 TABLET BY MOUTH EVERY 12 HOURS NEEDED FOR 5 DAYS 11/30 completed Not Available Not Available Not Available lidocaine 1 %-epineph rine 1:100,000 injection solution active Not Available Not Available Not Available sumatript an 6 mg/0.5 mL subcutane ous solution 2 TIMES PER DAY NEEDED FOR MIGRAINE 2014 active Not Available Not Available Not Avai lable amoxicill in 875 mg tablet TWO TIMES DAILY 12/09 completed RECORDED 01/13/20 11 2:27PM BY PATRICK SHEPPARD PA-C, MEDICATI ON AUTO-JOHAN CTIVATIO N; Not Available Not Available Not Available hydromorp aziza 2 mg tablet TAKE 1 TO 2 TABLETS BY MOUTH EVERY 4 TO 6 HOURS NEEDED FOR MODERATE PAIN SCALE 4-6 11/30 completed Not Available Not Available Not Available citalopra m 20 mg tablet Take 1 tablet every day by oral route. 02/02 completed Not Available Not Available Not Available omeprazol e 10 mg capsule,d elayed release Take 1 capsule by oral route for 30 days. 10/04 completed Not Available Not Available Not Available lorazepam 0.5 mg tablet TWO TIMES DAILY NEEDED 10/04 completed Not Available Not Available Not Available trazodone 100 mg tablet 06/25 completed Not Available Not Available Not Available diazepam 2 mg tablet Take 1 tablet every day by oral route for 5 days. 06/25 completed Not Available Not Available Not Available baclofen 10 mg tablet TAKE 2 TABLETS BY MOUTH 3 TIMES A DAY active Not Available Not Available No t Available benzonata te 100 mg capsule TAKE 1 CAPSULE BY MOUTH THREE TIMES A DAY NEEDED FOR COUGH FOR 10 DAYS NOT COVERED* * 08/21 completed Not Available Not Available Not Available lisinopri l 10 mg tablet Take 1 tablet every day by oral route for 90 days. 09/04 completed Not Available Not Available Not Available misoprost ol 200 mcg tablet 06/30 completed Not Available Not Available Not Available lidocaine 5 % topical patch APPLY 1 PATCH ONCE A DAY *MAX ON FOR 12 HOURS/24 HOURS* active Not Available Not Available No t Available oxycodone 5 mg capsule EVERY 4 HRS NEEDED FOR PAIN 12/21 completed RECORDED 12/23/19 13 7:26AM BY SHAWN PEÑA, MEDICATI ON AUTO-JOHAN CTIVATIO N; Not Available Not Available Not Available indometha ashli 50 mg capsule Take 1 capsule 3 times a day by oral route as directed for 7 days. 11/24 completed Not Available Not Available Not Available docusate sodium 100 mg capsule TAKE 1 CAPSULE BY MOUTH 2 TIMES A DAY NEEDED FOR CONSTIPA TION 02/25 completed Not Available Not Available Not Available gabapenti n 300 mg capsule 1 1 hour before bed 11/24 completed Not Available Not Available Not Available omeprazol e 20 mg capsule,d elayed release TAKE 1 CAPSULE BY MOUTH TWICE A DAY 05/14 completed Not Available Not Available Not Available monteluka st 10 mg tablet Take 1 tablet every day by oral route for 30 days. 08/21 completed Not Available Not Available Not Available mirtazapi ne 15 mg tablet 06/25 completed Not Available Not Available Not Available lorazepam 1 mg tablet TAKE 1 TABLET BY MOUTH EVERYDAY AT BEDTIME active Not Available Not Available No t Available azelastin e 137 mcg (0.1 %) nasal spray 08/21 completed Not Available Not Available Not Available scopolami ne 1 mg over 3 days transderm al patch EVERY 3 DAYS 12/02 completed RECORDED 12/05/19 13 10:26AM BY EDWAR BORDEN MD, MEDICATI ON AUTO-JOHAN CTIVATIO N; Not Available Not Available Not Available methylpre dnisolone 4 mg tablets in a dose pack TAKE 6 TABLETS ON DAY 1 DIRECTED ON PACKAGE AND DECREASE BY 1 TAB EACH DAY FOR A TOTAL OF 6 DAYS 11/24 completed Not Available Not Available Not Available sumatript an 20 mg/actuat ion nasal spray USE 1 SPRAY IN NOSTRIL DAILY NEEDED, MAY REPEAT AFTER 2 HRS IF NOT IMPROVED . MAX 2 SPRAYS PER DAY 06/25 completed Not Available Not Available Not Available oxybutyni n chloride 5 mg tablet Take 1 tablet twice a day by oral route for 30 days. 12/22 completed Not Available Not Available Not Available fluticaso ne propionat e 50 mcg/actua tion nasal spray,justina pension USE 2 SPRAYS IN EACH NOSTRIL DAILY, FOR EAR BLOCKAGE active Not Available Not Available No t Available Ambien 10 mg tablet Take 1 tablet every day by oral route. 2014 active Not Available Not Available Not Avai lable lamotrigi ne 100 mg tablet Take 1 tablet every day by oral route for 45 days. 11/13 completed Not Available Not Available Not Available simethico ne 80 mg chewable tablet CHEW 1 TABLET BY MOUTH 4 TIMES A DAY NEEDED FOR GAS 02/25 completed Not Available Not Available Not Available trimethob enzamide 300 mg capsule 3 TIMES PER DAY NEEDED FOR NAUSEA AND VOMITING 12/04 completed RECORDED 12/05/19 13 10:26AM BY EDWAR BORDEN MD, MEDICATI ON AUTO-JOHAN CTIVATIO N; Not Available Not Available Not Available sumatript an 6 mg/0.5 mL subcutane ous pen injector INJECT 0.5 ML (1 PEN) SUBCUTAN EOUSLY TWICE A DAY NEEDED active Not Available Not Available No t Available Cafergot 1 mg-100 mg tablet AT ONSET 05/17 completed RECORDED 05/17/20 10 12:35PM BY EDWAR BORDEN MD, ANNOTATI ON/ADDEN DUM;THEN MAY REPEAT 1 EVERY HALF HOUR X 4 (NO MORE THAN 6 TOTAL PER HEADACHE ) Not Available Not Available Not Available escitalop randee 10 mg tablet DAILY 04/15 completed RECORDED 04/15/20 13 8:33AM BY EDWAR BORDEN MD, SCOTTIE ON/ DUM; Not Available Not Available Not Available cyclobenz aprine 5 mg tablet TAKE 1 TABLET BY MOUTH EVERY DAY FOR 10 DAYS active Not Available Not Available No t Available bupropion HCl XL 300 mg 24 hr tablet, extended release TAKE 1 TABLET BY MOUTH EVERY DAY 2023 active Not Available Not Available Not Avai lable bupropion HCl XL 150 mg 24 hr tablet, extended release TAKE 1 TABLET BY MOUTH EVERY DAY active Not Available Not Available No t Available topiramat e 50 mg tablet TWO TIMES DAILY 11/06 completed RECORDED 11/07/19 14 8:47AM BY LEIA SUN MA, OFFICE VISIT; Not Available Not Available Not Available capsaicin 0.1 % topical cream Apply 1 applicat ion twice a day by topical route. 06/30 completed Not Available Not Available Not Available Menactra (PF) 4 mcg/0.5 mL intramusc ular solution 09/04 completed Not Available Not Available Not Available hydromorp aziza EVERY 4 HRS NEEDED FOR PAIN active RECORDED 03/26/20 13 11:58AM BY EDWAR BORDEN MD, SCOTTIE ON/ DUM; Not Available Not Available Not Available Vicodin THREE TIMES DAILY, NEEDED 01/29 completed RECORDED 01/31/20 11 2:22PM BY EDWAR BORDEN MD, MEDICATI ON AUTO-JOHAN CTIVATIO N; Not Available Not Available Not Available verapamil active for cluster headache s. Not Available Not Available Not Available cane DAILY 05/21 completed RECORDED 05/21/20 13 1:41PM BY SCOTTIE QUEZADA ON/ DUM;4-WV ONGED CANE Not Available Not Available Not Available Fioricet NEEDED active Not Available Not Available No t Available Imitrex STATdose Refill DIRECTED PRN MAX OF 2 DOSES DAILY 02/23 completed RECORDED 02/24/20 13 3:07PM BY EDWAR BORDEN MD, REFILL REQUEST; THIS ORDER DISCONTI NUED PER [facility]. Not Available Not Available Not Available Soliris 300 mg/30 mL intraveno us solution Infuse 240 mL every 2 weeks by intraven ous route. active For neuromye litis optica. Not Available Not Available Not Available oxycodone 10 mg tablet 09/04 completed Not Available Not Available Not Available Nplate prn platelet count 05/14 completed Not Available Not Available Not Available Botox 200 unit injection Take 200 units every 3 months by injectio n route for 90 days. active Not Available Not Available No t Available bupropion HCl XL 450 mg 24 hr tablet, extended release TAKE 1 TABLET BY MOUTH EVERY DAY active Not Available Not Available No t Available Fioricet 50 mg-300 mg-40 mg capsule Take 1 capsule every 4 hours by oral route as needed for 5 days. 06/18 completed Not Available Not Available Not Available butalbita l 50 mg-acetam inophen 300 mg-caffei ne 40 mg-codein e 30 mg cap TAKE ONE CAPSULE BY MOUTH EVERY 4 HOURS NEEDED 06/25 completed Not Available Not Available Not Available Trumenba 120 mcg/0.5 mL intramusc ular syringe 09/04 completed Not Available Not Available Not Available Fluzone Quad (PF) 60 mcg (15 mcg x 4)/0.5 mL IM syringe PHARMACY ADMINIST ERED 11/24 completed Not Available Not Available Not Available Vitals Date Recorded Body height Body mass index (BMI) Body weight Heart rate Oxygen saturation Oxygen saturation in Arterial blood by Pulse oximetry Body temperature Systolic blood pressure Diastolic blood pressure Provider Name and Address Organization Details Last Updated DateTime 4 160.02 cm 27.6 kg/m2 66339.4 1 g 106 /min 99 % 99 % 97.8 [degF] 111 mm[Hg] 78 mm[Hg] Liseth Marx MA [facility] 4 14:48:33 Social History Question Answer Notes LastModified by Organizat ion Details LastModified Time Tobacco Smoking Status Former Smoker Not Available [facility] 05/24/2020 03:36:38 Do You Have An Advance Directive? Yes Information not available 03/21/2022 What Is Your Level Of Alcohol Consumption? Occasional [id number] Information not available 05/24/2020 Is Blood Transfusion Acceptable In An Emergency? Yes [id number] Information not available 05/24/2020 What Is Your Level Of Caffeine Consumption? Occasional Coffee 1 Daily [id number] Information not available 05/24/2020 How Much Tobacco Do You Chew? None [email or web address] Information not available 02/02/2021 Are You Currently Employed? Yes [id number] Information not available 05/24/2020 What Type Of Diet Are You Following? REGULAR [id number] Information not available 05/24/2020 Which Illicit Or Recreational Drugs Have You Used? None [id number] Information not available 05/24/2020 Do You Or Have You Ever Used E-cigarettes Or Vape? Current User Of Electronic Cigarettes Ocassional Information not available 03/21/2022 What Is Your Occupation? [employer] IN[employer] [id number] Information not available 05/24/2020 When Did You Quit Smoking? 15+yearssince marietta andino Information not available 05/14/2023 Live Alone Or With Others? With Others Children 3 Sons Information not available 03/21/2022 Do You Take Precautions To Prevent Distracted Driving? Yes [email or web address] Information not available 06/15/2015 How Often Do You Need To Have Someone Help You When You Read Instructions, Pamphlets, Or Other Written Material From Your Doctor Or Pharmacy? Never TAPP Information not available 06/15/2015 Have You Served In The ? No TAPP Information not available 06/25/2016 Have You Or Anyone In Your Household Had Any Of The Following Symptoms In The Last 14 Days: Sore Throat, Cough, Chills, Body Aches For Unknown Reasons, Shortness Of Breath For Unknown Reasons, Loss Of Smell, Loss Of Taste, Fever At Or Greater Than 100 Degrees Fahrenheit? No Information not available 02/26/2020 Are You Or Anyone In Your Household A Health Care Provider Or Emergency Responder? No Information not available 02/26/2020 To The Best Of Your Knowledge Have You Been In Close Proximity To Any Individual Who Tested Positive For COVID-19? No Information not available 02/26/2020 Have You Recently Traveled To A COVID-19 High Risk Area Or Gathering In The Last 10 Days? No Information not available 02/02/2021 What Was The Date Of Your Most Recent Tobacco Screening? 05/19/2024 [email or web address] Information not available 05/19/2024 How Many Children Do You Have? 3 Sons Born 1998 2000 And 2006 [id number] Information not available 05/24/2020 Do You Use Your Seat Belt Or Car Seat Routinely? Yes Information not available 03/21/2022 Seat Belts Used Routinely Yes Information not available 03/21/2022 Are You Sexually Active? Yes Information not available 03/21/2022 Smoke Alarm In Home Yes Information not available 03/21/2022 Do You Have Smoke And Carbon Monoxide Detectors In Your Home? Yes Information not available 03/21/2022 At What Age Did You Start Smoking Tobacco? 17 [email or web address] Information not available 05/14/2023 Are You Passively Exposed To Smoke? Yes Information not available 03/21/2022 Do You Or Have You Ever Used Smokeless Tobacco? Never Used Smokeless Tobacco [id number] Information not available 05/24/2020 Do You Use Any Illicit Or Recreational Drugs? No Information not available 03/21/2022 Do You Use Sunscreen Routinely? Yes [id number] Information not available 05/24/2020 How Many Years Have You Smoked Tobacco? 5 Information not available 03/21/2022 Do You Or Have You Ever Used Any Other Forms Of Tobacco Or Nicotine? No Information not available 03/21/2022 Sex: Unknown Functional Status Question Answer Note LastModified by Organizat ion Details LastModified Time Are you able to walk? [email or web address] Information not available 03/21/2022 Are you able to care for yourself? Yes [id number] Information not available 05/24/2020 What is your exercise level? Occasional walking, weights [id number] Information not available 05/24/2020 Mental Status None recorded. Family History Relationship Description Onset Age of this Age Resolved Age Notes LastModified by Organization Details LastModified Time Mother Diabetes mellitus [email or web address] Not available 12/2015 16:11:37 Father Hypercholest erolemia [email or web address] Not available 12/2015 16:11:37 Unspecified Relation Migraine [email or web address] Not available 021 09:36:48 Unspecified Relation Sleep disorder Not available 2020 09:36:48 Brother Stabbed in fight 21 sina Not available 04/22 15:06:45 Notes:3 brothers (1 at age 21 --stabbed) Medical History Condition Response Anxiety Disorder Y Bladder Problems Y Depression Y Allergies Y Gynecological History Statement/Question Response Menses Monthly N Date of Last Pap Smear 03/02/2019 Most Recent Mammogram 06/06/2023 Obstetrics History GPAL:G 0 P 0 0 0 0 Immunizations Vaccine Type Date Status Note Provider Nam e and Address Organization Details Recorded Time Influenza, split virus, quadrivalent, preservative 9 completed Domitila Stover null, [facility] 11/29/2022 09:46:53 meningococcal B, recombinant 9 completed Domitila Stover null, [facility] 11/29/2022 09:46:53 meningococcal ACWY, unspecified formulation 9 completed Not Available [facility] 08/19/2023 10:53:02 Influenza, split virus, quadrivalent, preservative 1 completed Domitila Stover null, [facility] 11/29/2022 09:46:52 COVID-19, mRNA, LNP-S, PF, 100 mcg/0.5mL dose or 50 mcg/0.25mL dose 1 completed Domitila Stover null, [facility] 11/29/2022 09:46:53 COVID-19, mRNA, LNP-S, PF, 100 mcg/0.5mL dose or 50 mcg/0.25mL dose 1 completed Domitila Stover null, [facility] 11/29/2022 09:46:53 Influenza, split virus, quadrivalent, PF 0 completed Domitila Stover null, [facility] 11/29/2022 09:46:53 meningococcal MCV4P 9 completed Domitila Stover null, [facility] 11/29/2022 09:46:53 Influenza, split virus, quadrivalent, PF 6 completed Domitila Stover null, [facility] 11/29/2022 09:46:53 Meningococcal MCV4O 3 completed Leia Gomez MA null, [facility] 11/30/2022 16:10:01 Tdap 6 completed Not Available [facility] 08/08/2019 02:21:45 MMR 5 completed Domitila Stover null, [facility] 11/29/2022 09:46:53 varicella 5 completed Domitila Stover null, [facility] 11/29/2022 09:46:53 Hep B, adult 6 completed Domitila Stover null, [facility] 11/29/2022 09:46:53 Td (adult), 2 Lf tetanus toxoid, preservative free, adsorbed 6 completed Domitila Stover null, [facility] 11/29/2022 09:46:53 Hep B, adult 6 completed Domitila Stover null, [facility] 11/29/2022 09:46:53 Influenza, split virus, quadrivalent, PF 3 completed Edwar Horn MD [address] [address], [place], [address], [facility] 05/14/2023 17:00:25 Influenza, split virus, trivalent, PF 4 completed Edwar Horn MD [address] [address], [place], [address], [facility] 05/20/2024 08:34:42 Past Encounters Encounter ID Performer Location Encounter Start Date Encounter Closed Date Diagnosis/Indication Diagnosis SNOMED-CT Code Diagnosis ICD10 Code [id number] Edwar Horn MD Main Office [address] [address] 05/19/2024 14:31:55 05/19/2024 15:29:04 Adult health examination 337867111 Z00.00 Needs infl uenza immunization 176065542 Z23 Thrombocyt openic disorder 199589294 D69.6 Idiopathic transverse myelitis 689364431 G37.3 Anxiety 35329246 F41.9 Moderate m ajor depression 472077 F32.1 Health Concerns Section Related Observation LastModified by Organization Detai ls LastModified Time None Recorded Concern Status LastModified by Organization Details LastModified Time None Recorded Payers Encounter Date Sequence Insurance Name Policy Number Policy Burleson Covered Member ID Burleson Member ID Guarantor Name 05/19/[address] [facility] - DOS ON OR AFTER 2022 - DUAL ELIGIBLE - [employer] AND [employer] (MEDICARE REPLACEMENT/AD VANTAGE - HMO) Gary Patrick [id number] Gary Patrick Notes Date Note Type Note Provider Name and Address Organization Details Recorded Time 05/19/2024 text/html Generic HPI TemplateReported bypatient.Notes:She has multiple chronic problems including transverse myelitis, a thrombocytopenic d/o and neuromyelitis optica all of which have been stable recently. No change in mgmt.She continues to work as a [employer] and currently has 2 clients.She does not exercise regularly because she fatigues easily.She had the initial COVID vaccine series but is hesitant about getting boosters because of potential SE's.Due for a mammogram next month which she will schedule. Edwar Horn MD [address] [address], [place], [address], [facility] 05/20/2024 08:47:11 OBGyn Episode No OBEpisode recorded.
--- OUTSIDE RECORDS SUMMARY | 2024-07-20 15:08 | XMS_ITS | Data Portability ---
Author Organization [facility], Main Office Address [address] [facility] [address] [place] [id number] Care Team Providers Care Supervisor Post Wave Name Role Phone MONTY HORN Primary Care Provider RON HUIZAR Neurologist PHAM AMRSTRONG Medical Oncologist [facility] G[facility]OGY Gynecological/Oncology HEATHER LEE Neurosurgeon ROCCO COYNE Referring Provider Assessment Encounter Date Assessment Date Assessment LastModified by Organization Details LastModified Time 08/19/2023 08/19/2023 Discussed with patient the signs/symptoms warranted for a return to office visit and/or an ER visit. Patient understood and agreed with the plan. Not available 08/19/2023 11:12:25 12/30/2023 12/30/2023 Discussed with patient the signs/symptoms warranted for a return to office visit and/or an ER visit. Patient understood and agreed with the plan. Not available 12/30/2023 11:30:31 01/13/2024 01/13/2024 Chalazion with significant swelling of the upper lid on the left. Will continue conservative treatment and add abx with systemic doxy. follow up as needed. [email or web address] Not available 01/13/2024 14:39:40 Plan of Treatment Reminders Order Date Submit Date Provider Last Modified By Organization Details Last Modified Time Details Appointments FOLLOW UP 1 2024 12:45P M Monty james MD Not available Not available Not available Lab TSH, ultra-sen sitive, serum 2023 FRESNO [facility], [address], [place], [address], 02/27/2024 12:06:24 CBC w/ auto diff 2023 FRESNO [facility], [address], [address], [place], [address], 05/21/2024 06:07:33 CMP, serum or plasma 2023 FRESNO [facility], [address], [address], [place], [address], 05/21/2024 06:07:34 Referral physical therapist referral - left sided neck pain 2023 FRESNO [facility] [place] [address], [address], [place], [address], 10/16/2023 19:01:13 Procedures None recorded. Surgeries None recorded. Imaging XR, cervical spine - hx of surgery on C6/C7. left sided neck pain. note of any structura l changes. 2023 024 azeb [facility], [address] [place], [address], 08/19/2023 13:18:55 CT, cervical spine, w/o contrast - Neck pain for almost a year. Did PT for a month w/o help as well as home exercises . Has been taking tylenol and a muscle relaxant with minimal help. Cannot take NSAIDs because of low platelets . Had a cervical disc replaced by Dr Lee September 2022. R/o nerve compressi on. 2023 024 azeb [facility] [place] [facility] [address] [place], [address], 03/05/2024 08:23:44 Medication Orders cyclobenz aprine 5 mg tablet 2023 024 [facility]/Pharmacy #[id number], [address] [facility] [place], [address], 12/30/2023 14:33:20 doxycycli ne hyclate 100 mg capsule 2023 024 [facility]acy #[id number], [address] [facility], [address], 05/19/2024 14:49:32 cyclobenz aprine 10 mg tablet 2023 024 [facility]/Pharmacy #[id number], [address] [facility], [address], 02/26/2024 15:28:58 fluticaso ne propionat e 50 mcg/actua tion nasal spray,justina pension 2023 024 [email or web address] [facility]/Pharmacy #[id number], [address], [address], 03/19/2024 13:00:18 Patient TargetsNo targets recorded. Patient Instructions Encounter Date Encounter Id Patient Instructions Last Modified By Organization Details Last Modified Time 08/19/2023 [id number] chronic insomnia education Not available 08/19/2023 11:22:45 Chart reviewed, agree with above assessment and plan. [email or web address] Not available 08/21/2023 17:43:18 12/30/2023 [id number] At [facility] follow up visit, all current and discharge medications (OTC, herbal therapies, supplements) reviewed and reconciled with patient and or caregiver, including potential side effects, drug interactions, instructions, and the consequences of not taking medication. Reviewed potential barriers to medication adherence, such as side effects from medication or cost of medication. [email or web address] Not available 12/30/2023 14:26:53 02/26/2024 [id number] neck: exercises [email or web address] Not availab le 02/26/2024 15:28:54 healthy upper back: exercises [email or web address] Not available 02/26/2024 15:28:53 05/19/2024 [id number] thrombocytopenia : care instructions [email or web address] Not available 05/19/2024 15:22:54 Reason for Referral Physical Therapist Referral for Neck pain left sided neck pain Referring Physician: Jayde Bright, Family Medicine, Encounter Date: 08/19/2023 Results Created Date Observation Date Name Description Value Unit Range Abnormal Flag Note LastModifiedBy Organization Detail LastModifiedTime 02/26/2002/27/2024 TSH RFX ON ABNOR MAL TO FREE T4 TSH 0.583 uIU/m L 0.450- 4.500 normal Not Available [facility] ([facility]) [address] [place], [address], 02/27/2024 12:06:24 05/19/2005/20/2024 CBC WITH DIFFE RENTI AL/PL ATELE T WBC 5.2 x10e3 /uL 3.4-10 .8 normal Not Available [facility] ([facility]) [address] [place], [address], 05/21/2024 06:07:32 05/19/2005/20/2024 CBC WITH DIFFE RENTI AL/PL ATELE T RBC 4.90 x10e6 /uL 3.77-5 .28 normal Not Available [facility] ([facility]) [address] [place], [address], 05/21/2024 06:07:32 05/19/2005/20/2024 CBC WITH DIFFE RENTI AL/PL ATELE T hemoglobin 13.2 g/dL 11.1-1 5.9 normal Not Available [facility] ([facility]) [address] [place], [address], 05/21/2024 06:07:32 05/19/2005/20/2024 CBC WITH DIFFE RENTI AL/PL ATELE T hematocrit 41.6 % 34.0-4 6.6 normal Not Available [facility] ([facility]) [address] [place], [address], 05/21/2024 06:07:32 05/19/20 05/20/2024 CBC WITH DIFFE RENTI AL/PL ATELE T MCV 85 fL 79-97 normal Not Available [facility] ([facility]) [address] [facility], [place], [address], 05/21/2024 06:07:32 05/19/2005/20/2024 CBC WITH DIFFE RENTI AL/PL ATELE T MCH 26.9 pg 26.6-3 3.0 normal Not Available [facility] ([facility]) [address] [facility], [place], [address], 05/21/2024 06:07:32 05/19/2005/20/2024 CBC WITH DIFFE RENTI AL/PL ATELE T MCHC 31.7 g/dL 31.5-3 5.7 normal Not Available [facility] ([facility]) [address] [facility], [place], [address], 05/21/2024 06:07:32 05/19/2005/20/2024 CBC WITH DIFFE RENTI AL/PL ATELE T RDW 13.0 % 11.7-1 5.4 Not Available [facility] ([facility]) [address] [facility], [place], [address], 05/21/2024 06:07:32 05/19/2005/20/2024 CBC WITH DIFFE RENTI AL/PL ATELE T platelets 98 x10e3 /uL 150-45 0 alert low Not Available [facility] ([facility]) [address] [facility], [place], [address], 05/21/2024 06:07:32 05/19/2005/20/2024 CBC WITH DIFFE RENTI AL/PL ATELE T neutrophils 70 % not estab. normal Not Available [facility] ([facility]) [address] [facility], [place], [address], 05/21/2024 06:07:32 05/19/2005/20/2024 CBC WITH DIFFE RENTI AL/PL ATELE T lymphs 20 % not estab. normal Not Available [facility] ([facility]) [address] [facility], [place], [address], 05/21/2024 06:07:32 05/19/20 24 05/20/2024 CBC WITH DIFFE RENTI AL/PL ATELE T monocytes 8 % not estab. normal Not Available [facility] ([facility]) [address] [facility], [place], [address], 05/21/2024 06:07:32 05/19/2005/20/2024 CBC WITH DIFFE RENTI AL/PL ATELE T eos 0 % not estab. normal Not Available [facility] ([facility]) [address] [facility], [place], [address], 05/21/2024 06:07:32 05/19/2005/20/2024 CBC WITH DIFFE RENTI AL/PL ATELE T basos 1 % not estab. normal Not Available [facility] ([facility]) [address] [facility], [place], [address], 05/21/2024 06:07:32 05/19/20 24 05/20/2024 CBC WITH DIFFE RENTI AL/PL ATELE T immature cells BUN MACHINE OPERATOR Not Available [facility]) [address] [facility], [place], [address], 05/21/2024 06:07:32 05/19/20 24 05/20/2024 CBC WITH DIFFE RENTI AL/PL ATELE T neutrophils (absolute) 3.7 x10e3 /uL 1.4-7. 0 normal Not Available [facility] ([facility]) [address] [place], [address], 05/21/2024 06:07:32 05/19/20 24 05/20/2024 CBC WITH DIFFE RENTI AL/PL ATELE T lymphs (absolute) 1.0 x10e3 /uL 0.7-3. 1 normal Not Available [facility] ([facility]) [address] [facility], [place], [address], 05/21/2024 06:07:32 05/19/20 24 05/20/2024 CBC WITH DIFFE RENTI AL/PL ATELE T monocytes(ab solute) 0.4 x10e3 /uL 0.1-0. 9 normal Not Available [facility] ([facility]) [address] [facility], [place], [address], 05/21/2024 06:07:32 05/19/2005/20/2024 CBC WITH DIFFE RENTI AL/PL ATELE T eos (absolute) 0.0 x10e3 /uL 0.0-0. 4 normal Not Available [facility] ([facility]) [address] [facility], [place], [address], 05/21/2024 06:07:32 05/19/20 24 05/20/2024 CBC WITH DIFFE RENTI AL/PL ATELE T baso (absolute) 0.0 x10e3 /uL 0.0-0. 2 normal Not Available [facility] ([facility]) [address] [facility], [place], [address], 05/21/2024 06:07:32 05/19/20 24 05/20/2024 CBC WITH DIFFE RENTI AL/PL ATELE T immature granulocytes 1 % not estab. Not Available [facility] ([facility]) [address] [facility], [place], [address], 05/21/2024 06:07:32 05/19/2005/20/2024 CBC WITH DIFFE RENTI AL/PL ATELE T immature grans (abs) 0.0 x10e3 /uL 0.0-0. 1 Not Available [facility] ([facility]) [address] [facility], [place], [address], 05/21/2024 06:07:32 05/19/20 24 05/20/2024 CBC WITH DIFFE RENTI AL/PL ATELE T NRBC BUN MACHINE OPERATOR Not Available [facility] ([facility]) [address] [facility], [place], [address], 05/21/2024 06:07:32 05/19/20 24 05/20/2024 CBC WITH DIFFE RENTI AL/PL ATELE T hematology comments: Note: Verif ied by christina allen n. Not Available [facility] ([facility]) [address] [facility], [place], [address], 05/21/2024 06:07:32 05/19/2005/21/2024 COMP. METAB OLIC PANEL (14) glucose 111 mg/dL 70-99 above high normal Not Available [facility] ([facility]) [address] [facility], [place], [address], 05/21/2024 06:07:34 05/19/2005/21/2024 COMP. METAB OLIC PANEL (14) BUN 18 mg/dL 6-24 normal Not Available [facility] ([facility]) [address] [facility], [place], [address], 05/21/2024 06:07:34 05/19/20 24 05/21/2024 COMP. METAB OLIC PANEL (14) creatinine 1.07 mg/dL 0.57-1 .00 above high normal Not Available [facility] ([facility]) [address] [facility], [place], [address], 05/21/2024 06:07:34 05/19/2005/21/2024 COMP. METAB OLIC PANEL (14) eGFR 64 mL/mi n/1.7 3 >59 normal Not Available [facility] ([facility]) [address] [facility], [place], [address], 05/21/2024 06:07:34 05/19/20 24 05/21/2024 COMP. METAB OLIC PANEL (14) BUN/creatini ne ratio 17 9-23 normal Not Available [facility]) [address] [facility] [place], [address], 05/21/2024 06:07:34 05/19/20 24 05/21/2024 COMP. METAB OLIC PANEL (14) sodium 143 mmol/ L 134-14 4 normal Not Available [facility] ([facility]) [address], [place], [address], 05/21/2024 06:07:34 05/19/20 24 05/21/2024 COMP. METAB OLIC PANEL (14) potassium 3.9 mmol/ L 3.5-5. 2 normal Not Available [facility] ([facility]) [address], [place], [address], 05/21/2024 06:07:34 05/19/20 24 05/21/2024 COMP. METAB OLIC PANEL (14) chloride 102 mmol/ L 96-106 normal Not Available [facility] ([facility]) [address] [facility], [place], [address], 05/21/2024 06:07:34 05/19/20 24 05/21/2024 COMP. METAB OLIC PANEL (14) carbon dioxide, total 22 mmol/ L 20-29 normal Not Available [facility]) [address] [facility] [place], [address], 05/21/2024 06:07:34 05/19/20 24 05/21/2024 COMP. METAB OLIC PANEL (14) calcium 9.8 mg/dL 8.7-10 .2 normal Not Available [facility] ([facility]) [address] [facility] [place], [address], 05/21/2024 06:07:34 05/19/20 24 05/21/2024 COMP. METAB OLIC PANEL (14) protein, total 7.1 g/dL 6.0-8. 5 normal Not Available [facility]) [address], [place], [address], 05/21/2024 06:07:34 05/19/2005/21/2024 COMP. METAB OLIC PANEL (14) albumin 4.3 g/dL 3.9-4. 9 normal Not Available [facility] ([facility]) [address], [place], [address], 05/21/2024 06:07:34 05/19/2005/21/2024 COMP. METAB OLIC PANEL (14) globulin, total 2.8 g/dL 1.5-4. 5 Not Available [facility] ([facility]) [address], [place], [address], 05/21/2024 06:07:34 05/19/20 24 05/21/2024 COMP. METAB OLIC PANEL (14) bilirubin, total 0.2 mg/dL 0.0-1. 2 normal Not Available [facility]) [address], [place], [address], 05/21/2024 06:07:34 05/19/2005/21/2024 COMP. METAB OLIC PANEL (14) alkaline phosphatase 87 IU/L 44-121 normal Not Available [facility] [address], [place], [address], 05/21/2024 06:07:34 05/19/2005/21/2024 COMP. METAB OLIC PANEL (14) AST (SGOT) 19 IU/L 0-40 normal Not Available [facility] ([facility]) [address], [place], [address], 05/21/2024 06:07:34 05/19/2005/21/2024 COMP. METAB OLIC PANEL (14) ALT (SGPT) 9 IU/L 0-32 normal Not Available [facility] ([facility]) [address] [place], [address], 05/21/2024 06:07:34 08/26/19 24 08/26/2023 XR, cervi roseanne spine Cervic al Spine 3 Views or Less Reason : neck pain cervic algia. hx of surger y c6 c7, l sided neck pain, note any struct ural change s COMPAR CARI: 019. FINDIN GS: No bone lesion s or fractu res. Normal odonto id and C1/2 relati onship . There is an artifi cial cervic al disc appear ing at C6-C7 in excell ent positi on. Normal prever tebral soft tissue s and clear lung apices . IMPRES YULI: Artifi cial cervic al disc replac ement at C6-C7 appear ing since the prior examin ation. Otherw ise the alignm ent is normal no acute fractu re or disloc ation seen. WSN: [id number] Orderi ng Physic blanca: Jayde Bright Y Dictat ed By: Luther gutierres MD, Lenard Vásquez Dictat ed Date/T aleks: 4:48 pm Review ed By: Luther gutierres MD, Lenard Vásquez Signed By: Lenard Roth MD, V Signed Date/T aleks: 4:48 pm Transc ribed By: LEANDER Transc ribed Date/T aleks: 4:47 pm Patien t Class: Outpat ient [email or web address] [facility] ([facility]) [address] [place], [address], 08/27/2023 23:24:43 08/26/19 24 08/26/2023 XR, cervi roseanne spine No observ ation record ed. [facility] [address] [facility], [place], [address], 08/28/2023 13:38:24 03/11/20 24 03/11/2024 CT, cervi roseanne spine , w/o contr ast CT Cervic al Spine W/O Contra st Reason : M54.2 NECK PAIN; Clinic al Questi on(s): Other: ; neck pain TECHNI QUE: Spiral CT of the cervic al spine withou t contra st, format virgil in 3 planes . Weight -based protoc ol using automa tic tube modula tion was used to optimi ze exposu re parame ters. RADIAT ION DOSE PARAME TERS: CTDIvo l Body: 24.79 mGy, DLP Body: 522 mGy*cm . COMPAR CARI: CTA of the neck 024. Radiog raphs of the cervic al spine, 08/26/19 24. FINDIN GS: Spine: Disc prosth esis in place at C6-7. Hardwa re is intact and in expect ed positi on. No peripr osthet ic lucenc y is seen. No fractu re. No acute osseou s abnorm alitie s. The alignm ent is mainta ined. Interv ertebr al disc spaces are preser cheryl. No locked or perche d facet. Mild osteop hytic spurri ng is presen t at the level of C6-7 adjace nt to the prosth esis, includ ing mild uncove rtebra l spurri ng. There is mild right- sided neural forami nal narrow ing and minima l centra l stenos is at this level. No other signif icant centra l stenos is or neural forami nal narrow ing is seen in the remain mayra of the cervic al spine Soft tissue s and lung apices : Unrema rkable . Clear lung apices . IMPRES YULI: Expect ed postsu rgical appear ance of disc prosth esis at C6-7 with mild degene rative spurri ng at this level. No eviden ce of high-g rade stenos is at this level or elsewh ere in the cervic al spine. WSN: [id number] Orderi ng Physic blanca: Monty Howard Dictat ed By: Neetu Guallpa MD Dictat ed Date/T aleks: 7:28 pm Review ed By: Neetu Guallpa MD Signed By: Neetu Guallpa MD Signed Date/T aleks: 7:28 pm Transc ribed By: LEANDER Transc ribed Date/T aleks: 7:23 pm Patien t Class: Outpat anastacio andino [facility] ([facility]) [address] , [place], [address], 03/17/2024 08:40:29 Result Notes None recorded. Problems Name Problem SNOMED Code Status Onset Date Resolution Date Notes Provider Name and Address Organization Details Recorded Time Acute pharyngi tis 092260966 Completed 201202/09/2014 RECORDED 11/21/19 13 1:12PM BY SHOBHA PAZ MA, SCOTTIE ON/JIMI Menendez PA-C [address], [place], [address] , [facility] 6 16:58:58 Acute sinusiti s [id number] Completed 201202/09/2014 RECORDED 11/21/19 13 1:12PM BY SHOBHA PAZ MA, SCOTTIE ON/JIMI Menendez PA-C [address], [place], [address] , [facility] 6 16:58:58 Allergic rhinitis 88498132 Active Not Available [facility] 3 09:43:24 Anxiety state 565730446 Completed 201202/09/2014 IMPRESSI ON: THE ONLY MED FROM HOSPITAL SHE COULDNT GET WAS [facility] SINCE IT NEEDED PRIOR AUTH. WILL TRY TO GET PRIOR AUTH APPROVED BUT IF NOT APPROVED CELEXA SHOULD BE FINE.; RECORDED 03/26/20 13 10:56AM BY SCOTTIE RODRIGUEZ ON/IJMI Menendez PA-C [address], [place], [address] , [facility] 6 16:58:58 Neck pain 16527695 Active Not Available [facility] 3 09:43:24 Episodic cluster headache 897716632 Active Followed by Dr Huizar. On verapami l. Not Available [facility] 3 09:43:24 Constipa tion 69956719 Completed 201202/09/2014 IMPRESSI ON: SINCE SHE IS UNABLE TO TOLERATE PO WE WILL WAIT UNTIL SHE EVALUATE D BY DR LITTLE FOR TREATMEN T.; RECORDED 12/10/19 13 1:05PM BY FINA HARMON MA, ANNOTATI ON/ADDEN DUM Katherine Shon PA-C [address], [place], [address] , [facility] 6 16:58:58 Tobacco dependen ce syndrome 33310955 Completed 201303/29/2014 RECORDED 12/23/19 14 3:04PM BY SHOBHA PAZ MA, OFFICE VISIT Katherine ESCOBAR-C [address] [facility] [address], [place], [address] , [facility] 6 16:58:58 Tobacco dependen ce syndrome 13041073 Completed 201202/09/2014 RECORDED 03/26/20 13 10:56AM BY SCOTTIE RODRIGUEZ ON/ADDEN DUM Katherine Shon ESCOBAR-C [address], [place], [address] , [facility] 6 16:58:58 Single major depressi ve episode Completed 201202/09/2014 RECORDED 07/06/20 13 8:16AM BY SCOTTIE RODRIGUEZ ON/ADDEN DUM Katherine Shon ESCOBAR-C [address] [facility] [address], [place], [address] , [facility] 6 16:58:58 Diplopia 16567565 Completed 201303/29/2014 RECORDED 12/23/19 14 3:04PM BY SHOBHA PAZ MA, OFFICE VISIT Katherine LARAC [address], [place], [address] , [facility] 6 16:58:58 Tobacco user [id number] Completed 201202/09/2014 RECORDED 07/06/20 13 8:16AM BY SCOTTIE RODRIGUEZ ON/ADDEN DUM Katherine Menendez PA-C [address], [place], [address] , [facility] 6 16:58:58 History of clinical finding in subject [id number] Completed 201203/29/2014 RECORDED 07/06/20 13 8:16AM BY SCOTTIE RODRIGUEZ ON/ADDEN DUM Katherine Menendez PA-C [address], [place], [address] , [facility] 6 16:58:58 Ganglion and cyst of synovium , tendon and bursa Completed 201202/09/2014 IMPRESSI ON: PAINFUL R LOWER ARM MASS WITH ASSOCIAT ED PAIN. FEELS CONSISTE NT WITH A CYSTIC MASS ON EXAM, HOWEVER, THE LOCATION AND ASSOCIAT ED DISCOMFO RT ARE ATYPICAL AND SOMEWHAT CONCERNI NG. THERE IS NO EVIDENCE OF INFECTOI N. PT WAS EXAMINED BY DR. CHAVEZ, WHO ALSO AGREES WITH THIS DX AND PLAN. WILL REFER TO ORTHO FOR FURTHER EVAL. IN THE INTERIM, [facility] ED TRIAL OF OTC NSAIDS AND ICE FOR SX RELIEF.; RECORDED 11/21/19 13 1:12PM BY SHOBHA PAZ MA, SCOTTIE ON/ADDEN DUM Katherine Shon ESCOBAR-C [address], [place], [address] , [facility] 6 16:58:58 Headache 42641033 Completed 201302/09/2014 RECORDED 11/21/19 14 8:48AM BY SCOTTIE RODRIGUEZ ON/ADDEN DUM Katherine Shon PA-C [address], [place], [address] , [facility] 6 16:58:58 Diaphrag matic hernia 47136789 Active Not Available [facility] 3 09:43:24 Impacted cerumen 64933061 Completed 201202/09/2014 RECORDED 11/21/19 13 1:12PM BY SHOBHA PAZ MA, ANNOTATI ON/ADDEN DUM Katherine ESCOBAR-C [address], [place], [address] , [facility] 6 16:58:58 Insomnia 861262497 Active Not Available [facility] 3 09:43:24 Persiste nt vomiting 883067427 Completed 201302/09/2014 IMPRESSI ON: NO CLEAR ETIOLOGY [...] ASHLEE RAMEY I, ANNOTATI ON/ADDEN DUM Katherine ESCOBAR-C [address] [facility] [address], [place], [address] , [facility] 6 16:58:58 Laborato ry procedur e performe d [id number] Completed 201202/09/2014 RECORDED 12/10/19 13 1:05PM BY FINA HARMON MA, ANNOTATI ON/ADDEN DUM Katherinerito ESCOBAR-C [address] [facility] [address], [place], [address] , [facility] 6 16:58:58 Knee pain Active Not Available [facility] 3 09:43:24 Complica tion of pregnanc y, childbir th and/or puerperi 879879416 Completed 201303/29/2014 PREGNANC Y INDUCED; RECORDED 12/23/19 14 3:04PM BY SHOBHA PAZ MA, OFFICE VISIT Katherine LARAC [address] [facility] [address], [place], [address] , [facility] 6 16:58:58 Multiple sclerosi s 12668467 Completed 201303/29/2014 PRESUMED DX.; RECORDED 12/23/19 14 3:04PM BY SHOBHA PAZ MA, OFFICE VISIT Katherine Menendez PA-C [address] [facility] [address], [place], [address] , [facility] 6 16:58:58 Idiopath ic transver se myelitis 433310198 Active 2012 STORY: AT C2 LEVEL/ [facility]/ NO ETIOLOGY IDENTIFI ED. Followed by Dr Huizar. Monty Horn MD [address] [facility] [address], [place], [address] , [facility] 4 15:01:05 Skin sensatio n disturba ohe 13964242 Completed 201202/09/2014 IMPRESSI ON: ODD FOR HER TO HAVE GLOVE DISTRIBU TION ANESTHES IA TO PAIN. WITH THIS AND HEADACHE WOULD LIKE TO HAVE HER SEE NEURO.; RECORDED 01/24/20 13 12:48PM BY PEDRO WALLACE MA, ANNOTATI ON/ADDEN DUM Katherine Menendez PA-C [address] [facility] [address], [place], [address] , [facility] 6 16:58:58 Skin sensatio n disturba ohe 48274525 Completed 201303/29/2014 RECORDED 12/23/19 14 3:04PM BY SHOBHA PAZ MA, OFFICE VISIT Katherine Menendez PA-C [address] [facility] [address], [place], [address] , [facility] 6 16:58:58 Polyuria [id number] Completed 201202/09/2014 RECORDED 07/06/20 13 8:16AM BY ASHLEE RAMEY I, ANNOTATI ON/ADDEN DUM Katherine Menendez PA-C [address] [facility] [address], [place], [address] , [facility] 6 16:58:58 Measurem ent finding outside referenc e range [id number] Completed 201302/09/2014 STORY: FOR MMR AND VARICELL A; RECORDED 11/07/19 14 8:39AM BY JUSTIN SUN MA, ANNOTATI ON/ADDEN DUM Katherine Menendez PA-C [address], [place], [address] , [facility] 6 16:58:58 Tetraple kimi [id number] Completed 201202/09/2014 IMPRESSI ON: C3, C4 INCOMPLE TE QUADPARE SIS; RECORDED 07/06/20 13 8:16AM BY ASHLEE RAMEY I, JOSEFAATI ON/ADDEN DUM Katherine Shon ESCOBAR-C [address] [facility] [address], [place], [address] , [facility] 6 16:58:58 Knee pain Completed 201202/09/2014 RECORDED 07/06/20 13 8:16AM BY ASHLEE RAMEY I, JOSEFAATI ON/ADDEN DUM Katherine Shon ESCOBAR-C [address] [facility] [address], [place], [address] , [facility] 6 16:58:58 Adult health examinat ion Completed 201202/09/2014 RECORDED 07/06/20 13 8:16AM BY JOSEFA RODRIGUEZATI ON/ADDEN DUM Katherine Shon ESCOBAR-C [address] [facility] [address], [place], [address] , [facility] 6 16:58:58 Tubercul osis screenin g Completed 200902/09/2014 RECORDED 02/01/20 10 2:05PM BY ELEONORA CLEMENTE, OFFICE VISIT Katherine ESCOBAR-C [address] [facility] [address], [place], [address] , [facility] 6 16:58:58 Divertic ular disease of colon 408222500 Active Not Available [facility] 3 09:43:24 Streptoc occal sore throat 44726276 Completed 201202/09/2014 RECORDED 11/21/19 13 1:12PM BY SHOBHA PAZ MA, SCOTTIE ON/ADDEN DUM Katherine Menendez PA-C [address], [place], [address] , [facility] 6 16:58:58 Thromboc ytopenic disorder 709504284 Active 2012 Diagnose d 05/2013. Autoimmu ne. Was on steroids ; followed by Dr Armstrong. Looking to keep platelet s >30,000 Monty Horn MD [address], [place], [address] , [facility] 4 15:01:23 Urinary tract infectio us disease 26497817 Completed 201202/09/2014 RECORDED 07/06/20 13 8:16AM BY ASHLEE RAMEY I, SCOTTIE ON/ADDEN DUM Katherine Menendez PA-C [address], [place], [address] , [facility] 6 16:58:58 Migraine variants 507774395 Active Followed by neuro Receivin g botox injectio ns Not Available [facility] 3 09:43:24 Migraine variants 791435921 Completed 201202/09/2014 RECORDED 11/21/19 13 1:12PM BY SHOBHA PAZ MA, SCOTTIE ON/ADDEN TOBIAS Horn MD [address], [place], [address] , [facility] 3 07:24:51 Acute pharyngi tis 054356759 Completed 201203/01/2014 RECORDED 11/21/19 13 1:12PM BY SHOBHA PAZ MA, SCOTTIE ON/ADDEN DUM Katherine Menendez PA-C [address], [place], [address] , [facility] 6 16:58:58 Acute sinusiti s 55888217 Completed 201203/01/2014 RECORDED 11/21/19 13 1:12PM BY SHOBHA PAZ MA, SCOTTIE ON/ADDEN DUM Katherine Menendez PA-C [address], [place], [address] , [facility] 6 16:58:58 Anxiety state 983005350 Completed 201203/01/2014 IMPRESSI ON: THE ONLY MED FROM HOSPITAL SHE COULDNT GET WAS LEXAPRO SINCE IT NEEDED PRIOR AUTH. WILL TRY TO GET PRIOR AUTH APPROVED BUT IF NOT APPROVED CELEXA SHOULD BE FINE.; RECORDED 03/26/20 13 10:56AM BY SCOTTIE RODRIGUEZ ON/ADDEN DUM Katherine LARAC [address], [place], [address] , [facility] 6 16:58:58 Constipa tion 90997684 Completed 201203/01/2014 IMPRESSI ON: SINCE SHE IS UNABLE TO TOLERATE PO WE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
--- NOTE | 2024-07-20 15:10 | MHC.OFFVIS ---
Vital Signs 07/20/24 15:10 Height 5 ft 3 in Intake Visit Reasons: Botox Intake Note: Patient presents for botox injection Allergies promethazine [From Phenergan] Allergy (Verified 04/15/24 11:31) unknown Medication List - Last Reconciled 07/20/24 by Sunshine Blackwell MD baclofen 20 mg (2 x 10 mg) PO TID bupropion HCl XL (Wellbutrin XL) 300 mg PO QAM eculizumab (Soliris) 1,200 mg (120 mL) IV Q2W gabapentin 600 mg PO TID 30 days meningococcal B vaccine,4-comp 50-50-50-25 mcg/0.5 mL (Bexsero) 0.5ml IM 1st dose , 2nd dose in 4 weeks 0.5ml IM intramuscularly; meningococcal B vaccine,4-comp 50-50-50-25 mcg/0.5 mL (Bexsero) 0.5 mL IM ONCE onabotulinumtoxinA (Botox) subcut every 3 months; Oxygen Home Use High flow O2 at 12-15 lpm via non-rebreather mask, via M-tank when at home and E-tank when outside of home. Prn at onset of cluster headache attack. prednisone 6 tabs qd 3 days 5 tabs qd 3days 4 tabs qd 3 days 3 tabs qd 3 days 2 tabs qd 3 days 1 tab qd for 3 days orally as directed; see taper instructions romiplostim (Nplate) subcut sumatriptan succinate (Imitrex) 6 mg subcut DAILY verapamil ER 120 mg PO DAILY HPI Comments Details: ? 48y/o female comes for treatment of migraines with botox. she has h/o neuromyelitis optica diagnosed in 2019 and has been on soliris since then . Her first myelitis attack was in 2012 and her second was in 2019.she has residual neck pain , paresthesias and mild weakness How long do the migraines last=2-3 Intensity of migraine-10/10 ER visits related to [id number] Effectiveness of botox from last treatment(s) How many migraine days since receiving treatment:10 Change in intensity of migraine?decreased Change in frequency of migraine?decreased Change in use of acute medication for migraine?decreased Change in quality of life?improved ER visits related to migraine?none Explanation for any gaps in treatment Have at least three months elapsed since last treatment (Last botox date - frequency of injections)04/14 ??? Most frequent reported adverse reactions following injection of botox for chronic migraine include neck pain (9%), headache(5%), eyelid ptosis(4%), migraine(4%), muscular weakness(4%), musculuskeletal stiffness(4%), bronchitis(3%), injection site pain (3%), musculoskeletal pain(3%), myalgia(3%), facial paresis(2%), HTN(2%) and muscle spasms(2%) were discussed in detail. ??? Botulinum toxin type A 200units Lot no [id number] expiration Mar 2026 was diluted with 4 cc of normal saline . ??? Muscles injected- ??? Frontalis 4 sites ??? Procerus 1 site ??? Brush Operator- 2 sites ??? Temporalis- 8 sites ??? Occipitalis- 6 sites ??? Cervical paraspinals- 4 sites ??? Trapezius- 6 sites- 10 units each ??? 5 units each in 31 site ??? Total use- 185units ??? 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 Physical Exam Const General: cooperative, healthy appearing and comfortable Nutritional Appearance: average body habitus Orientation/consciousness: patient oriented x3 Neck Other: tightness and spasm of right scapula, right semispinalis, trapezius Neuro General: patient oriented x3 and moves all extremities Gait exam (Neuro): Normal gait present Motor exam (neuro): 5/5 motor strength present throughout Office Procedures Botulinum toxin Injection 63496 - Migraine Procedure code (CPT) selection complete Office Meds onabotulinumtoxinA 200 unit solution for injection Performing Provider: Sunshine Blackwell MD [place] [facility] [place] [facility] Administered by: Sunshine Blackwell MD on 07/20/24 15:36 Dose Route Admin Location Dispensed Lot Number Expiration Date [facility] [employer] Spreading Machine Operator 185 unit subcut 200 units [id number] [employer]ER[employer]/BOTOX Comments: see hpi Assessment & Plan Assessment & Plan (1) Neuromyelitis optica [devic]: Code(s): G36.0 - Neuromyelitis optica [Devic] Category: Medical (2) Chronic migraine without aura: Code(s): G43.709 - Chronic migraine without aura, not intractable, without status migrainosus Category: Medical Qualifiers: Status migrainosus presence: without status migrainosus Intractability: intractable Qualified Code(s): G43.719 - Chronic migraine without aura, intractable, without status migrainosus Plan Patient tolerated the procedure well She will call with any side effects. Continue soliris 1200mgq 2weeks infusion Reviewed MRi results Orders: Orders AMB Botulinum toxin Injection Today G43.719 - Chronic migraine without aura, intractable, without status migrainosus Medications: New onabotulinumtoxinA 200 units subcut ONCE 1 ea 0RF Migraine G43.719 - Chronic migraine without aura, intractable, without status migrainosus Coding Level of Care Code Est Pt Level 1 (28930) Diagnoses Neuromyelitis optica [devic] G36.0 Intractable chronic migraine without aura and without status migrainosus G43.719 Status migrainosus presence: without status migrainosus Intractability: intractable CPT Codes Botox Injection - Botox 3: 98365 - Migraine ([id number])
== END 2024-07-20 15:27 | disposition home or self-care (01) ==
PROVIDERS: PCP Internal Medicine; Visit Provider Psychiatry & Neurology Neurology
DX: G43.719 Chronic migraine without aura, intractable, without status migrainosus (principal)
CPT/HCPCS: 64615

== ENCOUNTER → 2024-07-20 15:05 | Outpatient (BNVA) | payer OTHER, SELFPAY | PROVIDERS: PCP Internal Medicine; Visit Provider Psychiatry & Neurology Neurology | DX: G43.719 Chronic migraine without aura, intractable, without status migrainosus (principal); G36.0 Neuromyelitis optica [Devic] | CPT/HCPCS: 64615; 99211; J0585 ==

== ENCOUNTER 2024-10-13 15:03 | Outpatient (AMB) | payer OTHER, SELFPAY ==
--- NOTE | 2024-10-13 15:07 | A.OFFVIS_ITS ---
Vital Signs 10/13/24 15:08 Height 5 ft 3 in Weight 154 lb BMI 27.3 Intake Visit Reasons: Botox Intake Note: Patient presents for botox injection. Practice supplied Allergies promethazine [From Phenergan] Allergy (Verified 10/13/24 15:10) unknown Medication List - Last Reconciled 10/13/24 by Sunshine Blackwell MD baclofen 20 mg (2 x 10 mg) PO TID bupropion HCl XL (Wellbutrin XL) 300 mg PO QAM eculizumab (Soliris) 1,200 mg (120 mL) IV Q2W gabapentin 600 mg PO TID 30 days meningococcal B vaccine,4-comp 50-50-50-25 mcg/0.5 mL (Bexsero) 0.5ml IM 1st dose , 2nd dose in 4 weeks 0.5ml IM intramuscularly; meningococcal B vaccine,4-comp 50-50-50-25 mcg/0.5 mL (Bexsero) 0.5 mL IM ONCE onabotulinumtoxinA (Botox) subcut every 3 months; Oxygen Home Use High flow O2 at 12-15 lpm via non-rebreather mask, via M-tank when at home and E-tank when outside of home. Prn at onset of cluster headache attack. prednisone 6 tabs qd 3 days 5 tabs qd 3days 4 tabs qd 3 days 3 tabs qd 3 days 2 tabs qd 3 days 1 tab qd for 3 days orally as directed; see taper instructions romiplostim (Nplate) subcut sumatriptan succinate (Imitrex) 6 mg subcut DAILY verapamil ER 120 mg PO DAILY HPI Comments Details: ? 48y/o female comes for treatment of migraines with botox. she has h/o neuromyelitis optica diagnosed in 2019 and has been on soliris since then . Her first myelitis attack was in 2012 and her second was in 2019.she has residual neck pain , paresthesias and mild weakness How long do the migraines last=2-3 Intensity of migraine-10/10 ER visits related to [id number]-6-2 Effectiveness of botox from last treatment(s) How many migraine days since receiving treatment:10 Change in intensity of migraine?decreased Change in frequency of migraine?decreased Change in use of acute medication for migraine?decreased Change in quality of life?improved ER visits related to migraine?none Explanation for any gaps in treatment Have at least three months elapsed since last treatment (Last botox date - frequency of injections)04/14 ??? Most frequent reported adverse reactions following injection of botox for chronic migraine include neck pain (9%), headache(5%), eyelid ptosis(4%), migraine(4%), muscular weakness(4%), musculuskeletal stiffness(4%), bronchitis(3%), injection site pain (3%), musculoskeletal pain(3%), myalgia(3%), facial paresis(2%), HTN(2%) and muscle spasms(2%) were discussed in detail. ??? Botulinum toxin type A 200units Lot no [id number] expiration October 2026 was diluted with 4 cc of normal saline . ??? Muscles injected- ??? Frontalis 4 sites ??? Procerus 1 site ??? Net Coordinator- 2 sites ??? Temporalis- 8 sites ??? Occipitalis- 6 sites ??? Cervical paraspinals- 4 sites ??? Trapezius- 6 sites- 10 units each ??? 5 units each in 31 site ??? Total use- 185units ??? 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 Physical Exam Vital Signs: BMI result Body Mass Index 27.3 Const General: cooperative, healthy appearing and comfortable Nutritional Appearance: average body habitus Orientation/consciousness: patient oriented x3 Neck Other: tightness and spasm of right scapula, right semispinalis, trapezius Neuro General: patient oriented x3 and moves all extremities Gait exam (Neuro): Normal gait present Motor exam (neuro): 5/5 motor strength present throughout Office Procedures Botulinum toxin Injection 92455 - Migraine Procedure code (CPT) selection complete Office Meds onabotulinumtoxinA 200 unit solution for injection Performing Provider: Sunshine Blackwell MD [place] [facility] [place] [facility] Administered by: Sunshine Blackwell MD on 10/13/24 15:30 Dose Route Admin Location Dispensed Lot Number Expiration Date [facility] [address] [employer] 185 unit subcut 200 units [id number] [employer]ERGAN/BOTOX Comments: see HPI Assessment & Plan Assessment & Plan (1) Neuromyelitis optica [devic]: Code(s): G36.0 - Neuromyelitis optica [Devic] Category: Medical (2) Chronic migraine without aura: Code(s): G43.709 - Chronic migraine without aura, not intractable, without status migrainosus Category: Medical Qualifiers: Status migrainosus presence: without status migrainosus Intractability: intractable Qualified Code(s): G43.719 - Chronic migraine without aura, intractable, without status migrainosus Plan Patient tolerated the procedure well She will call with any side effects. Continue soliris 1200mgq 2weeks infusion Reviewed MRi results Orders: Orders AMB Botulinum toxin Injection Today G43.719 - Chronic migraine without aura, intractable, without status migrainosus Medications: New onabotulinumtoxinA 200 units subcut ONCE 1 ea 0RF migraine G43.719 - Chronic migraine without aura, intractable, without status migrainosus Coding Level of Care Code Est Pt Level 1 (69576) Diagnoses Neuromyelitis optica [devic] G36.0 Intractable chronic migraine without aura and without status migrainosus G43.719 Status migrainosus presence: without status migrainosus Intractability: intractable CPT Codes Botox Injection - Botox 3: 61998 - Migraine ([id number])
[2024-10-13 15:08] VITALS: BMI 27.3
== END 2024-10-13 15:26 | disposition home or self-care (01) ==
LOC: HO.HSMS 15:04
PROVIDERS: PCP Internal Medicine; Visit Provider Psychiatry & Neurology Neurology
DX: G43.719 Chronic migraine without aura, intractable, without status migrainosus (principal)
CPT/HCPCS: 64615

== ENCOUNTER → 2024-10-13 15:03 | Outpatient (BNVA) | payer OTHER, SELFPAY | PROVIDERS: PCP Internal Medicine; Visit Provider Psychiatry & Neurology Neurology | DX: G36.0 Neuromyelitis optica [Devic] (principal); G43.719 Chronic migraine without aura, intractable, without status migrainosus | CPT/HCPCS: 64615; 99211; J0585 ==

== ENCOUNTER 2025-01-12 14:58 | Outpatient (AMB) | payer OTHER, SELFPAY ==
--- NOTE | 2025-01-12 15:03 | A.OFFVIS_ITS ---
Intake Visit Reasons: Botox Intake Note: Patient presents for botox injection. pharmacy supplied Allergies promethazine (From Phenergan) Allergy (Verified 10/13/24 15:10) unknown Medication List - Last Reconciled 01/12/25 by Sunshine Blackwell MD baclofen 20 mg (2 x 10 mg) PO TID bupropion HCl XL (Wellbutrin XL) 300 mg PO QAM eculizumab (Soliris) 1,200 mg (120 mL) IV Q2W gabapentin 600 mg PO TID 30 days meningococcal B vaccine,4-comp 50-50-50-25 mcg/0.5 mL (Bexsero) 0.5ml IM 1st dose , 2nd dose in 4 weeks 0.5ml IM intramuscularly; meningococcal B vaccine,4-comp 50-50-50-25 mcg/0.5 mL (Bexsero) 0.5 mL IM ONCE onabotulinumtoxinA (Botox) subcut every 3 months; Oxygen Home Use High flow O2 at 12-15 lpm via non-rebreather mask, via M-tank when at home and E-tank when outside of home. Prn at onset of cluster headache attack. prednisone 6 tabs qd 3 days 5 tabs qd 3days 4 tabs qd 3 days 3 tabs qd 3 days 2 tabs qd 3 days 1 tab qd for 3 days orally as directed; see taper instructions romiplostim (Nplate) subcut sumatriptan succinate (Imitrex) 6 mg subcut DAILY verapamil ER 120 mg PO DAILY HPI Comments Details: ? 48y/o female comes for treatment of migraines with botox. she has h/o neuromyelitis optica diagnosed in 2019 and has been on soliris since then . Her first myelitis attack was in 2012 and her second was in 2019.she has residual neck pain , paresthesias and mild weakness How long do the migraines last=2-3 Intensity of migraine-10/10 ER visits related to [id number] Effectiveness of botox from last treatment(s) How many migraine days since receiving treatment:10 Change in intensity of migraine?decreased Change in frequency of migraine?decreased Change in use of acute medication for migraine?decreased Change in quality of life?improved ER visits related to migraine?none Explanation for any gaps in treatment Have at least three months elapsed since last treatment (Last botox date - frequency of injections)04/14 ??? Most frequent reported adverse reactions following injection of botox for chronic migraine include neck pain (9%), headache(5%), eyelid ptosis(4%), migraine(4%), muscular weakness(4%), musculuskeletal stiffness(4%), bronchitis(3%), injection site pain (3%), musculoskeletal pain(3%), myalgia(3%), facial paresis(2%), HTN(2%) and muscle spasms(2%) were discussed in detail. ??? Botulinum toxin type A 200units Lot no [id number] expiration April 2027 was diluted with 4 cc of normal saline . ??? Muscles injected- ??? Frontalis 4 sites ??? Procerus 1 site ??? Environmental Health Manager- 2 sites ??? Temporalis- 8 sites ??? Occipitalis- 6 sites ??? Cervical paraspinals- 4 sites ??? Trapezius- 6 sites- 10 units each ??? 5 units each in 31 site ??? Total use- 185units ??? 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 Physical Exam Const General: cooperative, healthy appearing and comfortable Nutritional Appearance: average body habitus Orientation/consciousness: patient oriented x3 Neck Other: tightness and spasm of right scapula, right semispinalis, trapezius Neuro General: patient oriented x3 and moves all extremities Gait exam (Neuro): Normal gait present Motor exam (neuro): 5/5 motor strength present throughout Office Procedures Botulinum toxin Injection 75701 - Migraine Procedure code (CPT) selection complete Office Meds onabotulinumtoxinA 200 unit solution for injection Performing Provider: Sunshine Blackwell MD [place] [facility] [place] [facility] Administered by: Sunshine Blackwell MD on 01/12/25 15:35 Dose Route Admin Location Dispensed Lot Number Expiration Date [facility] Mechatronics Technician 185 unit subcut 200 units [id number] ALLERGAN /BOTOX Total Dispensed Waste 200 units 7.5 % Comments: see HPI Assessment & Plan Assessment & Plan (1) Neuromyelitis optica [devic]: Code(s): G36.0 - Neuromyelitis optica [Devic] Category: Medical (2) Chronic migraine without aura: Code(s): G43.709 - Chronic migraine without aura, not intractable, without status migrainosus Category: Medical Qualifiers: Status migrainosus presence: without status migrainosus Intractability: intractable Qualified Code(s): G43.719 - Chronic migraine without aura, intractable, without status migrainosus Plan Patient tolerated the procedure well She will call with any side effects. Continue soliris 1200mgq 2weeks infusion Reviewed MRi results Orders: Orders AMB Botulinum toxin Injection Today G36.0 - Neuromyelitis optica [Devic], G43.719 - Chronic migraine without aura, intractable, without status migrainosus Coding Level of Care Code Est Pt Level 1 (46390) Diagnoses Neuromyelitis optica [devic] G36.0 Intractable chronic migraine without aura and without status migrainosus G43.719 Status migrainosus presence: without status migrainosus Intractability: intractable CPT Codes Botox Injection - Botox 3: 49680 - Migraine ([id number])
--- OUTSIDE RECORDS SUMMARY | 2025-01-12 18:11 | XMS_ITS | Data Portability ---
Author Organization [employer], [facility] Address [address] [place] [phone] Care Team Providers Care Physician Neonatology Name Role Phone HIM CCA OTHER Assessment Encounter Date Assessment Date Assessment LastModified by Organization Details LastModified Time 12/23/2023 12/23/2023 I provided real -time medical direction via phone for this encounter, and was available for additional phone based assistance as needed. I have reviewed and agree with the Assessment and Plan as documented by the General House Worker. The patient given the opportunity to ask questions. [email or web address] Not available 12/23/2023 15:47:21 Plan of Treatment [...] Not available Not available Not available 12/23/2023 [id number] RxNorm Bela Michel MD [address] [place] [address],[address], [place], [address] [facility] [employer] 15:45:36 Medications Name Sig Start Date Stop [...] Diagnosis/Indication Diagnosis SNOMED-CT Code Diagnosis ICD10 Code Diagnosis Note [id number] Bela Michel MD Main - [facility] [address] [place] [phone] 12/23/2023 15:39:21 12/23/2023 16:36:29 Migraine [id number] G43.909 vs cluster H/A-pat spoke with her neurologis t on the phone just after visit start- declines any in home treament/ states her neurologis t requested she go immediatel y to the [facility] ER - she has no transporta tion, so [facility] called EMS- I placed a call to the [facility] ER to give report Health Concerns Section Related Observation LastModified by Organization Detai ls LastModified Time None Recorded Concern Status LastModified by Organization Details LastModified Time None Recorded Advance Directives Directive None Recorded Payers Insurance Date Sequence Insurance Name Policy Number Policy Burleson Covered Member ID Burleson Member ID Guarantor Name 12/23/2023 1 [facility] - DOS ON OR AFTER 2022 - DUAL ELIGIBLE - [facility] [employer] AND ONE [employer] (MEDICARE REPLACEMENT/AD VANTAGE - HMO) Gary Patrick [id number] Gary Patrick Notes Date Note Type Note Provider Name and Address Organization Details Recorded Time 12/23/2023 text/html HPI: Member called [facility], c/o hx of cluster headaches. Member is [...] cluster headaches, MDD, transverse myelitis. Offered member [facility] visit. Informed member, INSTED does not prescribe [...] ................... ................... ................... ................... ................... ................... ............. General House Worker Note From Adithya Luther: Upon arrival to the pt s home, pt was found seated in [...] ambulance transport. 911 initiated and SBAR to [facility] crew. ................... ................... ................... ................... ................... ................... ................... ........ Disposition: Fulfilled Bela Michel MD [address] [facility], [place], [address], [employer] 12/23/2023 16:17:58 OBGyn Episode No OBEpisode recorded.
== END 2025-01-12 15:34 | disposition home or self-care (01) ==
LOC: HO.HSMS 14:58
PROVIDERS: PCP Internal Medicine; Visit Provider Psychiatry & Neurology Neurology
DX: G43.719 Chronic migraine without aura, intractable, without status migrainosus (principal)
CPT/HCPCS: 64615

== ENCOUNTER → 2025-01-12 14:58 | Outpatient (BNVA) | payer OTHER, SELFPAY | PROVIDERS: PCP Internal Medicine; Visit Provider Psychiatry & Neurology Neurology | DX: G43.719 Chronic migraine without aura, intractable, without status migrainosus (principal); G36.0 Neuromyelitis optica [Devic]; G44.029 Chronic cluster headache, not intractable; M54.2 Cervicalgia; R20.2 Paresthesia of skin; R53.1 Weakness; D69.6 Thrombocytopenia, unspecified; Z79.52 Long term (current) use of systemic steroids; Z99.81 Dependence on supplemental oxygen | CPT/HCPCS: 64615; 99211; J0585 ==

== ENCOUNTER 2025-04-20 15:27 | Outpatient (AMB) | payer OTHER, SELFPAY ==
[2025-04-20 15:29] VITALS: BP 108/70; PULSE 99; O2SAT 98; BMI 27.6
--- NOTE | 2025-04-20 15:29 | MHC.OFFVIS ---
Vital Signs 04/20/25 15:29 Height 5 ft 3 in Weight 156 lb BMI 27.6 BP 108/70 Blood Pressure Location Rt brachial Position Sitting Pulse 99 Pulse Source Pulse Oximeter Pulse Oximetry (%) 98 Oxygen Delivery Method Room Air Intake Visit Reasons: Botox Intake Note: Botox Animal Caretaker Supervisor Required: No Accompanied by: Self / Same As Patient Allergies promethazine (From Phenergan) Allergy (Verified 04/20/25 15:29) unknown Medication List - Last Reconciled 04/20/25 by Sunshine Blackwell MD baclofen 20 mg (2 x 10 mg) PO TID bupropion HCl XL (Wellbutrin XL) 300 mg PO QAM eculizumab (Soliris) 1,200 mg (120 mL) IV Q2W gabapentin 600 mg PO TID 30 days meningococcal B vaccine,4-comp 50-50-50-25 mcg/0.5 mL (Bexsero) 0.5ml IM 1st dose , 2nd dose in 4 weeks 0.5ml IM intramuscularly; meningococcal B vaccine,4-comp 50-50-50-25 mcg/0.5 mL (Bexsero) 0.5 mL IM ONCE onabotulinumtoxinA (Botox) subcut every 3 months; Oxygen Home Use High flow O2 at 12-15 lpm via non-rebreather mask, via M-tank when at home and E-tank when outside of home. Prn at onset of cluster headache attack. sumatriptan succinate (Imitrex) 6 mg subcut DAILY verapamil ER 120 mg PO DAILY HPI Comments Details: ? 49y/o female comes for treatment of migraines with botox. she has h/o neuromyelitis optica diagnosed in 2019 and has been on soliris since then . Her first myelitis attack was in 2012 and her second was in 2019.she has residual neck pain , paresthesias and mild weakness How long do the migraines last=2-3 Intensity of migraine-10/10 ER visits related to neuzfmnu-4-0 Effectiveness of botox from last treatment(s) How many migraine days since receiving treatment:10 Change in intensity of migraine?decreased Change in frequency of migraine?decreased Change in use of acute medication for migraine?decreased Change in quality of life?improved ER visits related to migraine?none Explanation for any gaps in treatment Have at least three months elapsed since last treatment (Last botox date - frequency of injections)yes ??? Most frequent reported adverse reactions following injection of botox for chronic migraine include neck pain (9%), headache(5%), eyelid ptosis(4%), migraine(4%), muscular weakness(4%), musculuskeletal stiffness(4%), bronchitis(3%), injection site pain (3%), musculoskeletal pain(3%), myalgia(3%), facial paresis(2%), HTN(2%) and muscle spasms(2%) were discussed in detail. ??? Botulinum toxin type A 200units Lot no [id number] expiration May 2027 was diluted with 4 cc of normal saline . ??? Muscles injected- ??? Frontalis 4 sites ??? Procerus 1 site ??? Hob Grinder- 2 sites ??? Temporalis- 8 sites ??? Occipitalis- 6 sites ??? Cervical paraspinals- 4 sites ??? Trapezius- 6 sites- 10 units each ??? 5 units each in 31 site ??? Total use- 185units ??? 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 Physical Exam Vital Signs: Last Vital Signs Pulse 99 04/20/25 15:29 BP 108/70 04/20/25 15:29 Pulse Ox 98 04/20/25 15:29 Oxygen Delivery Method Room Air 09/30/25 15:29 BMI result Body Mass Index 27.6 Const General: cooperative, healthy appearing and comfortable Nutritional Appearance: average body habitus Orientation/consciousness: patient oriented x3 Neck Other: tightness and spasm of right scapula, right semispinalis, trapezius Neuro General: patient oriented x3 and moves all extremities Gait exam (Neuro): Normal gait present Motor exam (neuro): 5/5 motor strength present throughout Office Procedures Botulinum toxin Injection 18913 - Migraine Procedure code (CPT) selection complete Office Meds onabotulinumtoxinA 200 unit solution for injection Performing Provider: Sunshine Blackwell MD Performing Location: [facility] Administered by: Sunshine Blackwell MD on 04/20/25 15:50 Dose Route Admin Location Dispensed Lot Number Expiration Date [facility] Advisory Software Engineer 185 unit subcut 200 units [id number] ALLERGAN/BOTOX Total Dispensed Waste 200 units 7.5 % Comments: see HPI Assessment & Plan Assessment & Plan (1) Neuromyelitis optica [devic]: Code(s): G36.0 - Neuromyelitis optica [Devic] Category: Medical (2) Chronic migraine without aura: Code(s): G43.709 - Chronic migraine without aura, not intractable, without status migrainosus Category: Medical Qualifiers: Status migrainosus presence: without status migrainosus Intractability: intractable Qualified Code(s): G43.719 - Chronic migraine without aura, intractable, without status migrainosus Plan Patient tolerated the procedure well She will call with any side effects. Continue soliris 1200mgq 2weeks infusion Reviewed MRi results Orders: Orders AMB Botulinum toxin Injection Today G43.719 - Chronic migraine without aura, intractable, without status migrainosus Coding Level of Care Code Est Pt Level 1 (73532) Diagnoses Neuromyelitis optica [devic] G36.0 Intractable chronic migraine without aura and without status migrainosus G43.719 Status migrainosus presence: without status migrainosus Intractability: intractable CPT Codes Botox Injection - Botox 3: 89134 - Migraine ([id number])
--- OUTSIDE RECORDS SUMMARY | 2025-04-20 16:43 | XMS_ITS | Encounter Summary ---
Author Organization [facility] Address [address] [place] [address] Phone Care Team Providers Care Locket Maker Name Role Phone Edwar Horn MD Primary Care Provid er Encounter Details Date Type Department Care Team (Late st Contact Info) Description 09/27/2023 Procedure Pass [facility] Endoscopy Admitting Dept Virtual Department [address] [place] [address] Social History Tobacco Use Types Packs/Day Years Used Date Smoking Tobacco: Former Cigarettes Smokeless Tobacco: Never Alcohol Use Standard Drinks/Week Comments Yes 0 (1 standard drink = 0.6 oz pur e alcohol) rare Education Answer Date Recorded Are you interested in more education? Not on samra e 09/09/2023 Are you concerned about learning? Not on file 09/09/2023 No 09/09/2023 No 09/09/2023 Digital Access Answer Date Recorded No 09/09/2023 No 09/09/2023 Reliable internet access at home? Not on file 09/09/2023 Device with a working camera? Not on file Intimate Partner Violence Answer Date R ecorded Are you denied basic needs s uch as food, clothing, or medical care? No 09/27/2023 In the past 12 months have y ou been in a relationship with a person who hurts, threatens, or tries to control you? No 09/27/2023 Are you denied basic needs s uch as food, clothing, or medical care? No 09/27/2023 In the past 12 months have y ou been in a relationship with a person who hurts, threatens, or tries to control you? No 09/27/2023 Comments No Sex and Gender Information Value Date Recorded Sex Assigned at Not on file Legal Sex Female 2:12 PM EST Gender Identity Not on file Sexual Orientation Not on file documented as of this encounter Plan of Treatment Not on file documented as of this encounter Visit Diagnoses Not on filedocumented in this encounter Care Teams Locket Maker Relationship Specialty Start Date End Date Edwar Horn MD [address] [phone] PCP - General Pediatrics 09/06/23 documented as of this encounter Additional Source Comments The information contained in this document represents components of the legal health record. It is not the complete legal health record.[facility]
--- OUTSIDE RECORDS SUMMARY | 2025-04-20 16:43 | XMS_ITS | Clinical Summary ---
Author Organization [facility] it Address [address] [place] [address] Care Team Providers Care Petal Cutter Name Role Phone Edwar Horn MD Primary Care Provider Surgical History Surgery Date Site/Laterality Comments HYSTERECTOMY 2018 PROCEDURE: HISTORICAL HYSTERECTOMY OTHER SURGICAL HISTORY 10/08/2022 PROCEDURE: GA TOTAL DISC ARTHRP ANT SINGLE INTERSPACE CERVICAL; COMMENT: C6-7 discectomy and artificial disc replacement, Marianela Lee Medical History Medical History Date Comments Cluster headaches DX:Cluster hea daches [place]el[place]devic[place] [place] [facility] [place] DX:Neuromyelitis optica (dev ic) (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); COMMENT: Dr. 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) ; COMMENT: cervical. plts were 50 at that time. tx'd with high dose steroids Cervical cancer [place] [place] [place] [facility] [place] 2018 DX:Cervical cancer (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) Social History Tobacco Use Types Packs/Day Years Used Date Smoking Tobacco: Never Smokeless Tobacco: Never Comments Unknown Sex and Gender Information Value Date Recorded Sex Assigned at Not on file Legal Sex Female 10:27 AM EST Gender Identity Not on file Sexual Orientation Not on file Obstetrics History Last Filed Vital Signs Vital Sign Reading Time Taken Comments Blood Pressure - - Pulse - - Temperature - - Respiratory Rate - - Oxygen Saturation - - Inhaled Oxygen Concentration - - Weight 71.8 kg (158 lb 5 oz) 10/19/2022 1:12 PM EDT Height 160 cm (5' 3 ) 10/19/2022 1:12 PM EDT Body Mass Index 28.04 10/19/2022 1:12 PM EDT Plan of Treatment Health Maintenance Due Date Last Done Comments Colorectal Cancer Screening: Colonoscopy 1975 Cervical Cancer Screening: Pap Smear 11/21/1995 Hepatitis B Vaccines (3 of 3 - 19+ 3-dose series) 02/06/2006 09/11/2005, 08/09/2005 Breast Cancer Screening 12/18/2020 12/18/2018 HIV Screening 08/20/2023 Hepatitis C Screening 08/20/2023 Social Influencers of Health Screening 08/20/2023 Depression Screening 07/22/2024 Pneumococcal Vaccine: 50+ Years (1 of 1 - PCV) 2024 Zoster Vaccines (1 of 2) 2024 07/06/2005 COVID-19 Vaccine (3 - season) 2025 06/26/2021, 05/29/2021 Influenza Vaccine (#1) 2025 , 05/05/2020, 06/01/2019, Additional history exists DTaP,Tdap,and Td Vaccines (2 - Td or Tdap) 06/25/2026 06/25/2016, 08/09/2005 RSV Immunization Adult Patients (1 - 1-dose 75+ series) 2049 MMR Vaccines Aged Out 07/06/2005 No longer eligi ble based on patient's age to complete this topic Varicella Vaccines Aged Out 07/06/2005 No longer eligible based on patient's age to complete this topic Meningococcal ACWY Vaccine Aged Out 07/01/2019 N o longer eligible based on patient's age to complete this topic Meningococcal B Vaccine Aged Out 07/06/2019 No l onger eligible based on patient's age to complete this topic HIB Vaccines Aged Out No longer eligi ble based on patient's age to complete this topic HPV Vaccines Aged Out No longer eligi ble based on patient's age to complete this topic Hepatitis A Vaccines Aged Out No long er eligible based on patient's age to complete this topic IPV Vaccines Aged Out No longer eligi ble based on patient's age to complete this topic RSV Immunization Patients Under 20 months Aged Out No longer eligible based on patient's age to complete this topic Procedures Procedure Name Priority Date/Time Associated Diagnosis Comments [facility] SCREENING DIGITAL Routine 12/18/2018 3:39 PM EDT Encounter for screening mammogram for malignant neoplasm of breast from Last 3 Months or Most Recently Relevant to Health Maintenance Results * [facility] SCREENING DIGITAL (12/18/2018 3:39 PM EDT) Anatomical Region Laterality Modality Mammography 12/18/2018 2:49 PM EDT Narrative 12/18/2018 3:[address] [facility] Diagnostic Imaging Department [address] [place] [id number] Patient: Kya ROMERORYANFarhat /Age/Sex: 1975 - 43 - F Unit#: [id number] [facility]onic/Ordering Site: [facility] Ordering Physician: EDWAR HORN MD [facility] Screening Digital - 12/18/18 - 151 INDICATION: SCREENING COMPARISON: No prior studies are available for comparison. Baseline exam TECHNIQUE: CC and MLO views of the breasts were obtained, using full field digital mammography with 3D tomosynthesis views in the MLO projection. Computer aided detection with the [employer] 7.2-H was employed. FINDINGS: The breasts contain heterogeneously dense tissues, which may lower sensitivity of mammography in this patient. No suspicious masses, suspicious microcalcifications, or areas of architectural distortion are identified. There are no secondary signs of breast malignancy. IMPRESSION: No specific mammographic evidence of breast malignancy. Lack of an imaging correlate should not deter or delay biopsy of a clinically significant palpable finding. BI-RADS - Category 1: Negative 3341F, 7025F Annual screening mammography is recommended. Patient entered into a reminder system with a target date for the next mammogram. G0728 / [id number]) , [id number] Dictating Physician: KIMBERLI KEY MD Electronically Signed by: KIMBERLI KEY MD Dic Date/Time: 12/18/18 153 Sign date/Time: 12/18/18 153 Procedure Note Kimberli Kye - 07/10/2022 [facility] Diagnostic Imaging Department [address] [place], [place] [id number] Patient: AIDEN ROMERO /Age/Sex: 1975 - 43 - F Unit#: [id number] Location/Status: [facility] CLI Mnemonic/Ordering Site: [facility] Ordering Physician: EDWAR HORN MD [facility] Screening Digital - 12/18/181511 INDICATION: SCREENING COMPARISON: No prior studies are available for comparison. Baselineexam TECHNIQUE: CC and MLO views of the breasts were obtained, using full field digital mammography with 3D tomosynthesis views in the MLO projection. Computer aided detection with the [employer] 7.2-H was employed. FINDINGS: The breasts contain heterogeneously dense tissues, which may lowersensitivity of mammography in this patient. No suspicious masses, suspicious microcalcifications, or areas ofarchitectural distortion are identified. There are no secondary signs of breastmalignancy. IMPRESSION: No specific mammographic evidence of breast malignancy. Lack of an imaging correlate should not deter or delay biopsy of aclinically significant palpable finding. BI-RADS - Category 1: Negative 3341F, 7025F Annual screening mammography is recommended. Patient entered into a reminder system with a target date for the next mammogram. G0468 / [id number]) , [id number] Dictating Physician: KIMBERLI KEY MD Electronically Signed by: KIMBERLI KEY MD Dic Date/Time: 12/18/18 1535 Sign date/Time: 12/18/18 1530 us Edwar Horn MD IMG BI PROCEDURES Final Res ult from Last 3 Months or Most Recently Relevant to Health Maintenance Care Teams Petal Cutter Relationship Specialty Start Date End Date Edwar Horn MD [address] PCP - General Internal Medicine 11/14/18
--- OUTSIDE RECORDS SUMMARY | 2025-04-20 16:43 | XMS_ITS | Clinical Summary ---
Author Organization [facility] Address [address] [facility] [address] [place] [address] Phone Care Team Providers Care Industrial Sewer Name Role Phone Edwar Horn MD Primary Care Provid er Allergies Active Allergy Reactions Criticality Noted Date Comments Promethazine Other (See Comments) High 09/26/2023 Dystonic reaction Medications baclofen (LIORESAL) 10 MG tablet Take 10 mg by mouth 3 (three) times a day. Active gabapentin (NEURONTIN) 300 MG capsule Take 600 mg by mouth 3 (three) times a day. Takes 1 and 1/2 tabs 3 x daily Active buPROPion (WELLBUTRIN XL) 300 MG ER 24 hr tabletIndicatio ns:anxiety with depression Take 300 mg by mouth daily. Indications: anxiousness associated with depression Active buPROPion (WELLBUTRIN XL) 150 MG ER 24 hr tablet Take 150 mg by mouth daily. Active Medication-Free Text 200 Units every 3 (three) months. Botox 200 unit injection Active SUMAtriptan succinate (IMITREX) 6 mg/0.5 mL PnIjIndications :cluster headache 6 mg as needed. Indications: cluster headache Active Medication-Free Text Inject 300 mg into the vein every 14 (fourteen) days. Soliris IV Active Medication-Free Text once a week. N plates weekly Active Social History Tobacco Use Types Packs/Day Years Used Date Smoking Tobacco: Former Cigarettes Smokeless Tobacco: Never Tobacco Cessation:Counseling Given: Not Answered Alcohol Use Standard Drinks/Week Comments Yes 0 [...] on file Sexual Orientation Not on file Last Filed Vital Signs Vital Sign Reading Time Taken Comments Blood Pressure 114/88 09/27/2023 10:56 AM EST Pulse 80 09/27/2023 10:56 AM EST Temperature 36.4 C (97.5 F) 09/27/2023 9:47 AM EST Respiratory Rate 16 09/27/2023 10:56 AM EST Oxygen Saturation 100% 09/27/2023 10:56 AM EST Inhaled Oxygen Concentration - - Weight 71.7 kg (158 lb) 09/26/2023 10:33 AM EST Height 160 cm (5' 3 ) 09/26/2023 10:33 AM EST Body Mass Index 27.99 09/26/2023 10:33 AM EST Plan of Treatment Health Maintenance Due Date Last Done Comments LIPID PANEL 1975 DEPRESSION SCREENING 1986 SMOKING Hx and SMOKELESS TOBACCO SCREENING 11/21/1987 HEPATITIS C SCREENING 1992 HIV ONE-TIME SCREENING (18-65 YEARS) 1992 PAP SMEAR 11/21/1995 SCREENING FOR DIABETES 2009 COLOGUARD 11/21/2019 FIT TEST 11/21/2019 FOBT 11/21/2019 SIGMOIDOSCOPY 11/21/2019 VIRTUAL COLONOSCOPY 11/21/2019 PNEUMOCOCCAL VACCINES (50+ years) (1 of 1 - PCV) 2024 ZOSTER VACCINES (1 of 2) 2024 INFLUENZA VACCINE (#1) 2025 , 04/15/2021, 05/05/2020, Additional history exists COVID-19 VACCINE (3 - season) 2025 06/26/2021, 05/29/2021 MAMMOGRAM 06/06/2025 06/06/2023 Adult Td,Tdap Booster 06/25/2026 06/25/2016, 006 COLONOSCOPY 09/26/2033 09/27/2023 COLORECTAL CANCER SCREENING 09/26/2033 MENINGOCOCCAL VACCINES (B) Aged Out 07/06/2019 N o longer eligible based on patient's age to complete this topic MENINGOCOCCAL VACCINES (ACWY) Aged Out 11/27/2022, 07/01/2019 No longer eligibl e based on patient's age to complete this topic HEPATITIS A VACCINES Aged Out No long er eligible based on patient's age to complete this topic HIB VACCINES Aged Out No longer eligi ble based on patient's age to complete this topic Medical Devices Implanted Type Area Microfilm Camera Operator Device Identifier Shelf Expiration Date Model / Serial / Lot Plate Plate Neck Description:Plate C6, C7 Procedures Procedure Name Priority Date/Time Associated Diagnosis Comments ENDOSCOPY, COLON 09/27/2023 9:56 AM EST from Last 3 Months or Most Recently Relevant to Health Maintenance Results * ENDOSCOPY, COLON (09/27/2023 9:56 AM EST) Narrative Transcriptions Chelsy Hartman MD, MPH - 09/27/2023 9:56 AM EST [employer] Patient Name: Gary Patrick Attending MD:: CHELSY HARTMAN MD, Procedure Date: 09/27/2023 9:56 AM Date of : 1975 Age: 47 Admit Type: Outpatient Gender: Female Room: [facility] Referring MD: EDWAR HORN MD Exam Type: Colonoscopy Indications: Screening for colorectal malignant neoplasm Medications: Monitored Anesthesia Care Procedure: Informed consent was obtained from the patientafter discussion of the indications, limitations, alternatives, benefits, and risks of the procedure. Risks specifically discussed include but are not limited to medication reactions, missed lesions, bleeding, perforation, or the need for emergent surgery. Throughout the procedure, the patient's blood pressure, pulse, end-tidal CO2, and oxygensaturations were monitored continuously. The Olympus adult variable colonoscope [id number] #[id number] was introduced through the anus and advanced to the cecum, identified by appendiceal orifice andileocecal valve. The colonoscopy was performed without difficulty. The patient tolerated the procedurewell. The quality of the bowel preparation was evaluated using the BBPS ([place] Bowel Preparation Scale)with scores of: Right Colon = 3, Transverse Colon = 3and Left Colon = 3 (entire mucosa seen well with no residual staining, small fragments of stool oropaque liquid). The total BBPS score equals 9. Theileocecal valve, appendiceal orifice, and rectum were photographed. Complications: No immediate complications. Findings: The perianal and digital rectal examinations were normal. The rectum, sigmoid colon, descending colon, transverse colon, ascending colon and cecumappeared normal. One large-mouthed diverticulum was found in the ascending colon. No additional abnormalities were found onretroflexion. Impression: - The rectum, sigmoid colon, descending colon, transverse colon, ascending colon and cecum arenormal. - Diverticulosis in the ascending colon. - No specimens collected. Recommendation: - Repeat colonoscopy in [address] Chelsy Hartman CHELSY HARTMAN MD 09/27/2023 10:32:31 AM This report has been signed electronically. Number of Addenda: 0 Note Initiated On: 09/27/2023 9:56 AM Procedure Code(s): --- Professional --- 18227, Colonoscopy, flexible; diagnostic, including collection of specimen(s) by brushing or washing, when performed (separateprocedure) --- Technical --- 11947, Colonoscopy, flexible; diagnostic, including collection of specimen(s) by brushing or washing, when performed (separateprocedure) Diagnosis Code(s): --- Professional --- Z12.11, Encounter for screening for malignantneoplasm of colon K57.30, Diverticulosis of large intestine without perforation or abscess without bleeding --- Technical --- Z12.11, Encounter for screening for malignantneoplasm of colon K57.30, Diverticulosis of large intestine without perforation or abscess without bleeding CPT copyright 2021 [employer]. All rights reserved. The codes documented in this report are preliminary and upon professor of engineering reviewmay be revised to meet current compliance requirements. Procedure Date: 09/27/2023 9:56:[address] [place] [address] Edwar Horn MD GI PROCEDURE ORDERAB LES Final Result from Last 3 Months or Most Recently Relevant to Health Maintenance Insurance MEDICARE PART A & B [facility] ONE CARE MEDICARE REPLACEMENT MEDICARE PART A & B [facility] C[facility] MEDICARE REPLACEMENT MEDICARE PART A & B [facility] ONE CARE MEDICARE REPLACEMENT MEDICARE PART A & B [facility] CARE MEDICARE REPLACEMENT MEDICARE PART A & B MEDICARE REPLACEMENT MEDICARE PART A & B [id number] [place] [address] CARE MEDICARE REPLACEMENT [place]AY [address] Care Teams Industrial Sewer Relationship Specialty Start Date End Date Edwar Horn MD [address] [phone] PCP - General Pediatrics 09/06/23 Additional Source Comments The information contained in this document represents components of the legal health record. It is not the complete legal health record.[facility]
== END 2025-04-20 15:47 | disposition home or self-care (01) ==
LOC: HO.HSMS 15:28
PROVIDERS: PCP Internal Medicine; Visit Provider Psychiatry & Neurology Neurology
DX: G43.719 Chronic migraine without aura, intractable, without status migrainosus (principal)
CPT/HCPCS: 64615

== ENCOUNTER → 2025-04-20 15:27 | Outpatient (BNVA) | payer OTHER, SELFPAY | PROVIDERS: PCP Internal Medicine; Visit Provider Psychiatry & Neurology Neurology | DX: G43.719 Chronic migraine without aura, intractable, without status migrainosus (principal); G36.0 Neuromyelitis optica [Devic] | CPT/HCPCS: 64615; 99211; J0585 ==